=== PATIENT | male | born 1965 | race Caucasian/White ===

== ENCOUNTER 2020-07-01 20:33 | Inpatient (IN) | payer OTHER ==
[~2020-07-01] VITALS: Ht 182.9 cm; Wt 173.5 kg
[2020-07-01] MEDS ORDERED: ACETAMINOPHEN 500 MG TAB PO ONE (20:45)
[2020-07-01] MEDS ORDERED: FUROSEMIDE 20 MG/2 ML VIAL IV ONE (21:30)
[2020-07-01 21:38] LABS: Basophils # (auto) 0.1 10 ^3/uL (0-0.2); Eosinophils # (auto) 0 10 ^3/uL (0-0.8); Lymphocytes # (auto) 0.3 10 ^3/uL (0.4-5.4)
[2020-07-01 21:40] LABS: Basophils % (auto) 0.7 % (0.0-2.0); Lymphocytes % (auto) 1.4 % (10.0-50.0); Mean Corpuscular Hemoglobin 24.9 pg (28.0-32.0); Mean Corpuscular Hgb Conc. 31.9 g/dL (32.0-36.0); Mean Corpuscular Volume 78.1 fL (80.0-100.0); Monocytes # (auto) 1.1 10 ^3/uL (0-1.3); Monocytes % (auto) 5.5 % (0.0-12.0); Neutrophils # (auto) 19.4 10 ^3/uL (1.6-8.6); Neutrophils % (auto) 92.4 % (37.0-80.0); Nucleated Red Blood Cells % 1.9 %; Red Blood Cells 8.02 10^6/uL (4.5-5.90); White Blood Cell 20.9 10^3/uL (4.4-10.8)
[2020-07-01 21:49] LABS: Hematocrit 62.6 % (41.0-53.0)
[2020-07-01 22:12] LABS: Sodium 136 mmol/L (136-145)
[2020-07-01 22:13] LABS: Alanine Aminotransferase 33 U/L (16-61); Albumin 3.2 g/dL (3.4-5.0); Alkaline Phosphatase 236 U/L (45-117); Anion Gap 9 (5-15); Aspartate Aminotransferase 36 U/L (15-37); BUN/Creatinine Ratio 26.4; Bilirubin, Total 1.2 mg/dL (0.2-1.0); Blood Urea Nitrogen 48 mg/dL (7-18); Calcium 9.3 mg/dL (8.5-10.1); Carbon Dioxide 28 mmol/L (21-32); Chloride 99 mmol/L (98-107); GFR African American 50 mL/min; GFR Non-African American 41 mL/min; Glucose 104 mg/dL (74-106); Magnesium 1.5 mg/dL (1.6-2.6); Potassium 4.2 mmol/L (3.5-5.1); Total Protein 7.2 g/dL (6.4-8.2)
[2020-07-01] MEDS ORDERED: PIPERACILLIN-TAZOB 3.375GM 100 ML IV ONE (22:15)
[2020-07-01] MEDS ORDERED: VANCOMYCIN 1GM/250ML 250 ML IV ONE (22:30)
[2020-07-01] MEDS ORDERED: ASPirin-EC 81 mg tab PO ONE (22:30)
[2020-07-01 22:45] LABS: INR 1.59 (0.9-1.15); Partial Thromboplastin Time 27.9 sec (23.0-31.2)
[2020-07-01 23:01] LABS: Urine Bacteria FEW /hpf (None Seen); Urine Blood TRACE /uL (Negative); Urine Specific Gravity 1.019 (1.001-1.035); Urine WBC 1 /hpf (0 - 3)
[2020-07-01] MEDS ORDERED: SODIUM CHLORIDE 0.9% 1,000 ML IV ONE (23:45)
[2020-07-02] VITALS (20 sets, daily range): BP systolic 105–145; BP diastolic 48–69
[2020-07-02] MEDS ORDERED: NITROGLYCERIN 0.4 MG SL TAB SL PRN (01:15)
[2020-07-02] MEDS ORDERED: ACETAMINOPHEN 325 MG TAB PO PRN (01:15)
[2020-07-02] MEDS ORDERED: MORPHINE SULFATE INJECTION 2 MG/ML SYRG IV PRN (01:15)
[2020-07-02] MEDS ORDERED: IBUPROFEN 600 MG TAB PO ONE (01:15)
[2020-07-02] MEDS ORDERED: VANCOMYCIN PER PHARMACY 0 MG IV SCH (01:15)
[2020-07-02] MEDS ORDERED: DEXTROSE (50%) 50ML SYRG IV PRN (01:15)
[2020-07-02] MEDS ORDERED: HYDROcodone-ACET 5/325MG TAB PO PRN (01:15)
[2020-07-02] MEDS ORDERED: ONDANSETRON HCL 4 MG/2 ML VIAL IV PRN (01:15)
[2020-07-02] MEDS ORDERED: methylPREDNISolone SOD SUCC 125 MG/2 ML VL IV ONE (03:15)
[2020-07-02] MEDS: FUROSEMIDE 40 MG/4 ML VIAL IV SCH ×2 (04:49→18:50)
[2020-07-02] MEDS: ACCU-CHEK COMFORT CURVE STRIP VI SCH ×3 (04:50→18:00)
[2020-07-02] MEDS: InsuLIN REG 1unit/0.01ml Soln (100units/ml) SC SCH ×3 (04:50→18:00)
[2020-07-02] MEDS: PIPERACILLIN-TAZOB 3.375GM 100 ML IV SCH ×3 (04:51→18:51)
[2020-07-02] MEDS: IPRATROPIUM BROM 0.5 MG/2.5ML INH SOL NEB SCH ×3 (06:10→18:45)
[2020-07-02] MEDS: ALBUTEROL SULF 2.5 MG/0.5ML(0.5%) NEB SOLN NEB SCH ×3 (06:10→18:45)
[2020-07-02] MEDS: ATENOLOL 50 MG TAB PO SCH (10:00)
[2020-07-02] MEDS ORDERED: VANCOMYCIN 750mg/250ml 250 ML IV SCH (10:00)
[2020-07-02] MEDS ORDERED: LOSARTAN POTASSIUM 50 MG TAB PO SCH (10:00)
[2020-07-02] MEDS: ASPirin 81 mg TAB PO SCH (10:22)
[2020-07-02] MEDS: PANTOPRAZOLE 40 MG TAB PO SCH (10:23)
[2020-07-02] MEDS: ENOXAPARIN SOD 40 MG/0.4 ML SYRINGE SC SCH (10:24)
[2020-07-02] MEDS ORDERED: MAGNESIUM OXIDE 400 MG TAB PO ONE (11:15)
[2020-07-02] MEDS ORDERED: methylPREDNISolone SOD SUCC 40 MG/ML VL IV SCH (12:00)
[2020-07-02 12:51] LABS: Eosinophils # (auto) 0 10 ^3/uL (0-0.8); Hemoglobin 18.4 g/dL (13.5-17.5); Mean Corpuscular Volume 78.9 fL (80.0-100.0)
[2020-07-02 12:52] LABS: Basophils # (auto) 0 10 ^3/uL (0-0.2); Basophils % (auto) 0.1 % (0.0-2.0); Lymphocytes # (auto) 0.2 10 ^3/uL (0.4-5.4); Lymphocytes % (auto) 1.5 % (10.0-50.0); Mean Corpuscular Hemoglobin 24.9 pg (28.0-32.0); Mean Corpuscular Hgb Conc. 31.6 g/dL (32.0-36.0); Monocytes # (auto) 0.6 10 ^3/uL (0-1.3); Monocytes % (auto) 3.8 % (0.0-12.0); Neutrophils # (auto) 15.6 10 ^3/uL (1.6-8.6); Neutrophils % (auto) 94.6 % (37.0-80.0); Nucleated Red Blood Cells % 0.3 %; Red Blood Cells 7.36 10^6/uL (4.5-5.90); Red Cell Distribution Width 16.6 % (11.8-14.3); White Blood Cell 16.5 10^3/uL (4.4-10.8)
[2020-07-02 12:59] LABS: Hematocrit 58.1 % (41.0-53.0)
[2020-07-02] MEDS ORDERED: OPTISON 3ml Vial for INJ IV ONE (13:01)
[2020-07-02 13:03] LABS: Albumin 2.2 g/dL (3.4-5.0); Calcium 6.9 mg/dL (8.5-10.1); Potassium 5.3 mmol/L (3.5-5.1)
[2020-07-02 13:06] LABS: Bilirubin, Total 1.4 mg/dL (0.2-1.0); Total Protein 6.2 g/dL (6.4-8.2)
[2020-07-02 13:17] LABS: Protein, Urine 146.5 mg/dL (0.0-11.9)
[2020-07-02] MEDS: SODIUM BICARBONATE 50ML VIAL 150 ML in D5W 5% 1,000 ML IV SCH (20:00)
[2020-07-02] MEDS ORDERED: ATORVASTATIN 20 MG TAB PO SCH (22:00)
[2020-07-03] VITALS (16 sets, daily range): BP systolic 112–147; BP diastolic 60–79
[2020-07-03] MEDS: PIPERACILLIN-TAZOB 3.375GM 100 ML IV SCH ×4 (00:19→17:16)
[2020-07-03] MEDS: ACCU-CHEK COMFORT CURVE STRIP VI SCH ×4 (00:19→17:18)
[2020-07-03] MEDS: InsuLIN REG 1unit/0.01ml Soln (100units/ml) SC SCH ×4 (00:25→17:21)
[2020-07-03] MEDS: IPRATROPIUM BROM 0.5 MG/2.5ML INH SOL NEB SCH ×4 (00:26→18:23)
[2020-07-03] MEDS: ALBUTEROL SULF 2.5 MG/0.5ML(0.5%) NEB SOLN NEB SCH ×4 (00:26→18:23)
[2020-07-03 05:58] LABS: Basophils # (auto) 0 10 ^3/uL (0-0.2); Eosinophils # (auto) 0 10 ^3/uL (0-0.8); Hemoglobin 18.1 g/dL (13.5-17.5); Lymphocytes # (auto) 0.3 10 ^3/uL (0.4-5.4); Monocytes # (auto) 0.7 10 ^3/uL (0-1.3); Neutrophils % (auto) 87.1 % (37.0-80.0); Red Cell Distribution Width 16.6 % (11.8-14.3)
[2020-07-03] MEDS: FUROSEMIDE 40 MG/4 ML VIAL IV SCH ×2 (06:04→17:16)
[2020-07-03 06:07] LABS: Basophils % (auto) 0.1 % (0.0-2.0); Hematocrit 55.4 % (41.0-53.0); Lymphocytes % (auto) 3.5 % (10.0-50.0); Mean Corpuscular Hemoglobin 25.7 pg (28.0-32.0); Mean Corpuscular Hgb Conc. 32.7 g/dL (32.0-36.0); Mean Corpuscular Volume 78.6 fL (80.0-100.0); Monocytes % (auto) 9.3 % (0.0-12.0); Neutrophils # (auto) 6.8 10 ^3/uL (1.6-8.6); Red Blood Cells 7.05 10^6/uL (4.5-5.90); White Blood Cell 7.8 10^3/uL (4.4-10.8)
[2020-07-03 06:20] LABS: Albumin 2.3 g/dL (3.4-5.0); BUN/Creatinine Ratio 35.5; Calcium 7.9 mg/dL (8.5-10.1); Potassium 4.5 mmol/L (3.5-5.1)
[2020-07-03 06:22] LABS: Bilirubin, Total 0.8 mg/dL (0.2-1.0); Total Protein 5.8 g/dL (6.4-8.2)
[2020-07-03] MEDS: SODIUM BICARBONATE 50ML VIAL 150 ML in D5W 5% 1,000 ML IV SCH ×2 (07:58→18:30)
[2020-07-03] MEDS: ENOXAPARIN SOD 40 MG/0.4 ML SYRINGE SC SCH (09:48)
[2020-07-03] MEDS: ATENOLOL 50 MG TAB PO SCH (09:49)
[2020-07-03] MEDS: PANTOPRAZOLE 40 MG TAB PO SCH (09:49)
[2020-07-03] MEDS: ASPirin 81 mg TAB PO SCH (09:49)
[2020-07-03] MEDS ORDERED: MAGNESIUM OXIDE 400 MG TAB PO SCH (10:00)
[2020-07-03] MEDS ORDERED: INSULIN LANTUS (GLARGINE) 1 /0.01ml (100units/ml) SC SCH (13:15)
[2020-07-03] MEDS ORDERED: DEXTROSE (50%) 50ML SYRG IV PRN (20:00)
[2020-07-04] MEDS ORDERED: InsuLIN REG 1unit/0.01ml Soln (100units/ml) SC SCH
[2020-07-04] MEDS ORDERED: ACCU-CHEK COMFORT CURVE STRIP VI SCH
[2020-07-04] MEDS ORDERED: ASPirin 81 mg TAB PO SCH (10:00)
== END 2020-07-03 21:11 | disposition short-term general hospital (02) | DRG 871 ==
LOC: EDBD 20:33 → ER 20:33 → TELE 07-02 01:16 → DOU IN ICU 07-02 03:45
PROVIDERS: ADMIT Nurse Practitioner; ATTEND Internal Medicine Nephrology
PROC: 5A09357 Assistance with Respiratory Ventilation, Less than 24 Consecutive Hours, Continuous Positive Airway Pressure (ICD-10-PCS; principal; 2020-07-02)
PROC: 5A09357 Assistance with Respiratory Ventilation, Less than 24 Consecutive Hours, Continuous Positive Airway Pressure (ICD-10-PCS; 2020-07-03)
PROC: 05HD33Z Insertion of Infusion Device into Right Cephalic Vein, Percutaneous Approach (ICD-10-PCS; 2020-07-03)
PROC: B54MZZA Ultrasonography of Right Upper Extremity Veins, Guidance (ICD-10-PCS; 2020-07-03)
DX: A41.9 Sepsis, unspecified organism (principal); I21.A1 Myocardial infarction type 2; J18.9 Pneumonia, unspecified organism; J96.21 Acute and chronic respiratory failure with hypoxia; J96.22 Acute and chronic respiratory failure with hypercapnia; E66.2 Morbid (severe) obesity with alveolar hypoventilation; Z68.43 Body mass index [BMI] 50.0-59.9, adult; E87.4 Mixed disorder of acid-base balance; I13.0 Hypertensive heart and chronic kidney disease with heart failure and stage 1 through stage 4 chronic kidney disease, or unspecified chronic kidney disease; J44.0 Chronic obstructive pulmonary disease with (acute) lower respiratory infection; J44.1 Chronic obstructive pulmonary disease with (acute) exacerbation; L03.115 Cellulitis of right lower limb; L03.116 Cellulitis of left lower limb; N17.9 Acute kidney failure, unspecified; D75.1 Secondary polycythemia; E11.22 Type 2 diabetes mellitus with diabetic chronic kidney disease; E11.65 Type 2 diabetes mellitus with hyperglycemia; Z20.822 Contact with and (suspected) exposure to COVID-19; E87.5 Hyperkalemia; E88.09 Other disorders of plasma-protein metabolism, not elsewhere classified; I50.82 Biventricular heart failure; I87.8 Other specified disorders of veins; K42.9 Umbilical hernia without obstruction or gangrene; R65.20 Severe sepsis without septic shock; R74.01 Elevation of levels of liver transaminase levels; N18.32 Chronic kidney disease, stage 3b
CPT/HCPCS: 36415; 36600; 71045; 80053; 81001; 82570; 82805; 82962; 83036; 83605; 83735; 83880; 84156; 84484; 85025; 85379; 85610; 85730; 87040; 87077; 87081; 87086; 87186; 87205; 87426; 93005; 93306; 93970; 94640; 94660; 96361; 96365; 96367; 96375; 99291; G0378; J1815; J2543; Q9956

== ENCOUNTER 2022-01-30 21:58 | Emergency (ER) | payer OTHER ==
[~2022-01-30] VITALS: Ht 182.9 cm; Wt 154.5 kg
[2022-01-30 23:08] LABS: Urine Bacteria NONE SEEN /hpf (None Seen); Urine Blood Negative /uL (Negative); Urine Specific Gravity 1.017 (1.001-1.035); Urine WBC 9 /hpf (0 - 3)
[2022-01-31] MEDS ORDERED: MORPHINE SULFATE 4 MG/ML SYR/VIAL IV ONE (02:00)
[2022-01-31 02:37] LABS: Basophils # (auto) 0.1 10 ^3/uL (0-0.2); Basophils % (auto) 0.5 % (0.0-2.0); Eosinophils # (auto) 0 10 ^3/uL (0-0.8); Eosinophils % (auto) 0.1 % (0.0-7.0); Hematocrit 52.7 % (41.0-53.0); Hemoglobin 16.9 g/dL (13.5-17.5); Lymphocytes # (auto) 0.5 10 ^3/uL (0.4-5.4); Mean Corpuscular Hemoglobin 26.3 pg (28.0-32.0); Mean Corpuscular Hgb Conc. 32.1 g/dL (32.0-36.0); Mean Corpuscular Volume 81.9 fL (80.0-100.0); Monocytes # (auto) 0.9 10 ^3/uL (0-1.3); Monocytes % (auto) 7.2 % (0.0-12.0); Neutrophils # (auto) 10.5 10 ^3/uL (1.6-8.6); Neutrophils % (auto) 88.2 % (37.0-80.0); Nucleated Red Blood Cells % 0.5 %; Red Blood Cells 6.43 10^6/uL (4.5-5.90); White Blood Cell 11.9 10^3/uL (4.4-10.8)
[2022-01-31 02:55] LABS: Albumin 2.9 g/dL (3.4-5.0); Calcium 9.6 mg/dL (8.5-10.1)
[2022-01-31 02:58] LABS: BUN/Creatinine Ratio 39.7; Bilirubin, Total 1.2 mg/dL (0.2-1.0); Total Protein 6.6 g/dL (6.4-8.2)
[2022-01-31 03:00] VITALS: BP 158/75
[2022-02-01] MEDS ORDERED: ATEN50TA PO (11:57)
[2022-02-01] MEDS ORDERED: ATOR40TA52 PO (11:57)
[2022-02-01] MEDS ORDERED: AMLO-496 PO (11:57)
[2022-02-01] MEDS ORDERED: LOSA-39 PO (11:57)
== END 2022-01-31 04:55 | disposition home or self-care (01) ==
LOC: ER 22:01
DX: R10.9 Unspecified abdominal pain (principal); E86.0 Dehydration; I11.0 Hypertensive heart disease with heart failure; I50.9 Heart failure, unspecified; E11.9 Type 2 diabetes mellitus without complications; J44.9 Chronic obstructive pulmonary disease, unspecified
CPT/HCPCS: 36415; 71045; 74176; 80053; 81001; 82550; 82962; 83880; 84484; 85025; 93005; 96374; 99285; J2270

== ENCOUNTER 2022-02-01 05:02 | Inpatient (IN) | payer OTHER ==
[2022-02-01] VITALS (8 sets, daily range): BP systolic 131–162; BP diastolic 69–76
[~2022-02-01] VITALS: Ht 177.8 cm; Wt 164.5 kg
[2022-02-01] MEDS ORDERED: ALBUTEROL SULF 2.5 MG/0.5ML(0.5%) NEB SOLN HHN ONE (05:15)
[2022-02-01] MEDS ORDERED: IPRATROPIUM BROM 0.5 MG/2.5ML INH SOL HHN ONE (05:15)
[2022-02-01] MEDS ORDERED: FUROSEMIDE 100 MG/10ML VIAL IV ONE (05:15)
[2022-02-01] MEDS ORDERED: AZITHROMYCIN 500MG/ 250ML 250 ML IV ONE (06:15)
[2022-02-01] MEDS ORDERED: ACETAMINOPHEN 325 MG TAB PO ONE (06:15)
[2022-02-01] MEDS ORDERED: cefTRIAXone 1GM/50ML D5W 50 ML IV ONE (06:15)
[2022-02-01 07:39] LABS: Basophils # (auto) 0 10 ^3/uL (0-0.2); Eosinophils # (auto) 0 10 ^3/uL (0-0.8); Hemoglobin 16.4 g/dL (13.5-17.5); Neutrophils # (auto) 13.2 10 ^3/uL (1.6-8.6); White Blood Cell 14.5 10^3/uL (4.4-10.8)
[2022-02-01] MEDS ORDERED: IOHEXOL 350 MG/ML 100ML IJ ONE (07:41)
[2022-02-01 07:42] LABS: Basophils % (auto) 0.2 % (0.0-2.0); Hematocrit 50.8 % (41.0-53.0); Lymphocytes # (auto) 0.5 10 ^3/uL (0.4-5.4); Lymphocytes % (auto) 3.3 % (10.0-50.0); Mean Corpuscular Hemoglobin 26.2 pg (28.0-32.0); Mean Corpuscular Hgb Conc. 32.3 g/dL (32.0-36.0); Mean Corpuscular Volume 81.1 fL (80.0-100.0); Monocytes # (auto) 0.8 10 ^3/uL (0-1.3); Monocytes % (auto) 5.4 % (0.0-12.0); Neutrophils % (auto) 91.1 % (37.0-80.0); Red Blood Cells 6.26 10^6/uL (4.5-5.90); Red Cell Distribution Width 16.2 % (11.8-14.3)
[2022-02-01] MEDS ORDERED: cefEPIME 1gm INJ VIAL IM ONE (07:45)
[2022-02-01] MEDS ORDERED: VANCOMYCIN 1GM/250ML 250 ML IV ONE (07:45)
[2022-02-01 08:34] LABS: Albumin 2.9 g/dL (3.4-5.0); Calcium 9.5 mg/dL (8.5-10.1); Magnesium 2.4 mg/dL (1.6-2.6); Potassium 4.3 mmol/L (3.5-5.1)
[2022-02-01 08:38] LABS: Bilirubin, Total 1.9 mg/dL (0.2-1.0); Total Protein 6.5 g/dL (6.4-8.2)
[2022-02-01] MEDS ORDERED: CEFEPIME 1GM/ 50ML 50 ML IV ONE (10:00)
[2022-02-01] MEDS ORDERED: MORPHINE SULFATE INJ 2 MG/ml SYRG IV PRN ×2 (11:45)
[2022-02-01] MEDS ORDERED: NITROGLYCERIN 0.4 MG SL TAB SL PRN (11:45)
[2022-02-01] MEDS ORDERED: ENOXAPARIN SOD 100 MG/1 ML SYRINGE SC ONE (11:45)
[2022-02-01] MEDS ORDERED: SODIUM CHLORIDE 0.9% 1,000 ML IV SCH (11:45)
[2022-02-01] MEDS ORDERED: HYDROcodone-ACET 5/325MG TAB PO PRN (11:45)
[2022-02-01] MEDS ORDERED: SODIUM CHLORIDE 0.9% 500 ML IV ONE (11:45)
[2022-02-01] MEDS ORDERED: DEXTROSE (50%) 50ML SYRG IV PRN (11:45)
[2022-02-01] MEDS ORDERED: IPRATROPIUM BROM 0.5 MG/2.5ML INH SOL NEB PRN (11:45)
[2022-02-01] MEDS ORDERED: ATOR40TA52 PO (11:57)
[2022-02-01] MEDS ORDERED: AMLO-496 PO (11:57)
[2022-02-01] MEDS ORDERED: LOSA-39 PO (11:57)
[2022-02-01] MEDS ORDERED: ATEN50TA PO (11:57)
[2022-02-01] MEDS: InsuLIN REG 1unit/0.01ml Soln (100units/ml) SC SCH ×2 (12:00→18:28)
[2022-02-01] MEDS: ACCU-CHEK COMFORT CURVE STRIP VI SCH ×2 (13:00→18:19)
[2022-02-01 13:11] LABS: Urine WBC None Seen /hpf (0 - 3)
[2022-02-01 13:21] LABS: Urine Bacteria NONE SEEN /hpf (None Seen); Urine Blood Negative /uL (Negative); Urine Hyaline Cast FEW /lpf (0 - 2); Urine Specific Gravity 1.013 (1.001-1.035)
[2022-02-01 13:24] LABS: INR 1.42 (0.9-1.15)
[2022-02-01 13:31] LABS: Cholesterol 75 mg/dL (< 200); HDL Cholesterol 23 mg/dL (40-59); LDL Cholesterol 43 mg/dL (< 100); Triglycerides 140 mg/dL (< 150)
[2022-02-01] MEDS: ALBUTEROL SULF 2.5 MG/0.5ML(0.5%) NEB SOLN NEB SCH ×3 (14:01→23:54)
[2022-02-01] MEDS: IPRATROPIUM BROM 0.5 MG/2.5ML INH SOL NEB SCH ×3 (14:01→23:54)
[2022-02-01] MEDS: FUROSEMIDE 40 MG/4 ML VIAL IV SCH ×2 (15:16→18:00)
[2022-02-01] MEDS: ENOXAPARIN SOD 150 MG/1 ML SYRINGE SC SCH (22:01)
[2022-02-02] VITALS (47 sets, daily range): BP systolic 84–143; BP diastolic 48–85
[2022-02-02] MEDS: InsuLIN REG 1unit/0.01ml Soln (100units/ml) SC SCH ×5 (00:10→23:39)
[2022-02-02] MEDS: ACCU-CHEK COMFORT CURVE STRIP VI SCH ×4 (00:11→18:19)
[2022-02-02] MEDS: ACETAMINOPHEN 325 MG TAB PO PRN ×2 (05:10→15:48)
[2022-02-02] MEDS: FUROSEMIDE 40 MG/4 ML VIAL IV SCH (05:54)
[2022-02-02] MEDS: IPRATROPIUM BROM 0.5 MG/2.5ML INH SOL NEB SCH ×4 (06:24→23:51)
[2022-02-02] MEDS: ALBUTEROL SULF 2.5 MG/0.5ML(0.5%) NEB SOLN NEB SCH ×4 (06:24→23:51)
[2022-02-02 06:43] LABS: Eosinophils # (auto) 0 10 ^3/uL (0-0.8); Lymphocytes # (auto) 0.4 10 ^3/uL (0.4-5.4); Lymphocytes % (auto) 3.1 % (10.0-50.0)
[2022-02-02 06:47] LABS: Basophils # (auto) 0.1 10 ^3/uL (0-0.2); Basophils % (auto) 0.5 % (0.0-2.0); Hematocrit 46.2 % (41.0-53.0); Hemoglobin 14.8 g/dL (13.5-17.5); Mean Corpuscular Hgb Conc. 32.1 g/dL (32.0-36.0); Mean Corpuscular Volume 80.9 fL (80.0-100.0); Monocytes % (auto) 6.9 % (0.0-12.0); Neutrophils # (auto) 12.8 10 ^3/uL (1.6-8.6); Neutrophils % (auto) 89.5 % (37.0-80.0); Red Blood Cells 5.72 10^6/uL (4.5-5.90); Red Cell Distribution Width 15.9 % (11.8-14.3); White Blood Cell 14.4 10^3/uL (4.4-10.8)
[2022-02-02 07:11] LABS: Potassium 4.5 mmol/L (3.5-5.1)
[2022-02-02 07:19] LABS: Albumin 2.3 g/dL (3.4-5.0); BUN/Creatinine Ratio 52.3; Bilirubin, Total 1.5 mg/dL (0.2-1.0); Calcium 8.7 mg/dL (8.5-10.1)
[2022-02-02] MEDS ORDERED: ROCURONIUM 10MG/ML 10ML VIAL IV ONE ×2 (08:52→10:00)
[2022-02-02] MEDS ORDERED: ETOMIDATE (2MG/ML) 20ML VIAL IV ONE ×2 (08:52→10:00)
[2022-02-02] MEDS ORDERED: cefTRIAXone 1GM/50ML D5W 50 ML IV SCH (09:00)
[2022-02-02] MEDS: fentaNYL Drip 2500mCg/250mlNS 250 ML IV SCH ×2 (09:00→13:26)
[2022-02-02] MEDS: PROPOFOL 100 ML IV SCH (09:00)
[2022-02-02] MEDS: MIDAZOLAM DRIP 50 mg/50mL 50 ML IV SCH ×3 (09:00→21:41)
[2022-02-02] MEDS ORDERED: AZITHROMYCIN 500MG/ 250ML 250 ML IV SCH (10:00)
[2022-02-02] MEDS: ENOXAPARIN SOD 150 MG/1 ML SYRINGE SC SCH (10:00)
[2022-02-02] MEDS ORDERED: PIPERACILLIN-TAZOB 3.375GM 100 ML IV ONE (14:30)
[2022-02-02] MEDS ORDERED: PANTOPRAZOLE 40 MG/10 ML VIAL INJ IV ONE (14:30)
[2022-02-02] MEDS: NOREPINEPHRINE 8 MG/250ML KIT 250 ML IV SCH ×2 (14:30→19:57)
[2022-02-02] MEDS ORDERED: DEXTROSE (50%) 50ML SYRG IV PRN (14:30)
[2022-02-02] MEDS ORDERED: SODIUM CHLORIDE 0.9% 1,000 ML IV SCH (14:30)
[2022-02-02] MEDS ORDERED: MEROPENEM 1GM IVPB 100 ML IV ONE (14:45)
[2022-02-02] MEDS: LINEZOLID 600MG/300ML 300 ML IV SCH (21:41)
[2022-02-02] MEDS: MEROPENEM 1GM IVPB 100 ML IV SCH (21:41)
[2022-02-02] MEDS ORDERED: PIPERACILLIN-TAZOB 3.375GM 100 ML IV SCH (22:00)
[2022-02-03] VITALS (71 sets, daily range): BP systolic 91–133; BP diastolic 47–69
[2022-02-03] MEDS: MIDAZOLAM DRIP 50 mg/50mL 50 ML IV SCH ×3 (02:07→12:10)
[2022-02-03] MEDS: fentaNYL Drip 2500mCg/250mlNS 250 ML IV SCH (02:09)
[2022-02-03 04:49] LABS: Basophils # (auto) 0.1 10 ^3/uL (0-0.2); Basophils % (auto) 0.7 % (0.0-2.0); Eosinophils # (auto) 0.1 10 ^3/uL (0-0.8); Eosinophils % (auto) 0.6 % (0.0-7.0); Hemoglobin 13.4 g/dL (13.5-17.5); Lymphocytes # (auto) 1.1 10 ^3/uL (0.4-5.4); Mean Corpuscular Hemoglobin 25.7 pg (28.0-32.0); Mean Corpuscular Hgb Conc. 31.1 g/dL (32.0-36.0); Mean Corpuscular Volume 82.7 fL (80.0-100.0); Monocytes # (auto) 1.2 10 ^3/uL (0-1.3); Monocytes % (auto) 7.6 % (0.0-12.0); Neutrophils # (auto) 13.6 10 ^3/uL (1.6-8.6); Neutrophils % (auto) 84.1 % (37.0-80.0); Nucleated Red Blood Cells % 0.1 %; Red Cell Distribution Width 16.5 % (11.8-14.3); White Blood Cell 16.2 10^3/uL (4.4-10.8)
[2022-02-03 05:09] LABS: BUN/Creatinine Ratio 45.6; Bilirubin, Total 1.3 mg/dL (0.2-1.0); Calcium 8.2 mg/dL (8.5-10.1); Potassium 4.7 mmol/L (3.5-5.1)
[2022-02-03] MEDS: ACCU-CHEK COMFORT CURVE STRIP VI SCH ×5 (05:36→23:46)
[2022-02-03] MEDS: InsuLIN REG 1unit/0.01ml Soln (100units/ml) SC SCH ×4 (05:36→23:46)
[2022-02-03] MEDS: MEROPENEM 1GM IVPB 100 ML IV SCH (05:42)
[2022-02-03] MEDS: PROPOFOL 100 ML IV SCH (07:14)
[2022-02-03] MEDS: LINEZOLID 600MG/300ML 300 ML IV SCH (09:33)
[2022-02-03] MEDS: PANTOPRAZOLE 40 MG/10 ML VIAL INJ IV SCH (09:34)
[2022-02-03] MEDS: ALBUTEROL SULF 2.5 MG/0.5ML(0.5%) NEB SOLN NEB SCH ×3 (09:41→18:17)
[2022-02-03] MEDS: IPRATROPIUM BROM 0.5 MG/2.5ML INH SOL NEB SCH ×3 (09:41→18:17)
[2022-02-03] MEDS ORDERED: ENOXAPARIN SOD 40 MG/0.4 ML SYRINGE SC SCH (10:00)
[2022-02-03] MEDS ORDERED: Nepro With Carb Steady 1 Liter Bottle GT SCH (14:15)
[2022-02-03] MEDS ORDERED: SODIUM CHLORIDE 0.9% 1,000 ML IV SCH (14:15)
[2022-02-03] MEDS: ALBUMIN 25% 100 ML IV SCH ×2 (15:00→22:29)
[2022-02-03] MEDS ORDERED: CEFTRIAXONE SODIUM 2 GM in D5W 5% 50 ML IV SCH (15:19)
[2022-02-03] MEDS: CEFEPIME 1GM/ 50ML 50 ML IV SCH (16:00)
[2022-02-03] MEDS: FREE WATER GT SCH ×2 (18:00→21:36)
[2022-02-03] MEDS: ENOXAPARIN SOD 40 MG/0.4 ML SYRINGE SC SCH (21:36)
[2022-02-03] MEDS: INSULIN LANTUS (GLARGINE) 1 /0.01ml (100units/ml) SC SCH (21:38)
[2022-02-03] MEDS ORDERED: CLINDAMYCIN 600MG IV 50 ML IV SCH (22:00)
[2022-02-04] VITALS (107 sets, daily range): BP systolic 80–134; BP diastolic 45–65
[2022-02-04] MEDS: MIDAZOLAM DRIP 50 mg/50mL 50 ML IV SCH ×3 (00:05→09:43)
[2022-02-04] MEDS: IPRATROPIUM BROM 0.5 MG/2.5ML INH SOL NEB SCH ×4 (00:20→18:13)
[2022-02-04] MEDS: ALBUTEROL SULF 2.5 MG/0.5ML(0.5%) NEB SOLN NEB SCH ×3 (00:20→12:01)
[2022-02-04] MEDS: FREE WATER GT SCH ×4 (03:06→17:52)
[2022-02-04] MEDS: CEFEPIME 1GM/ 50ML 50 ML IV SCH ×2 (03:52→16:50)
[2022-02-04 04:38] LABS: Albumin 2.5 g/dL (3.4-5.0); Basophils # (auto) 0.1 10 ^3/uL (0-0.2); Basophils % (auto) 0.5 % (0.0-2.0); Calcium 8.2 mg/dL (8.5-10.1); Eosinophils # (auto) 0.1 10 ^3/uL (0-0.8); Eosinophils % (auto) 0.9 % (0.0-7.0); Lymphocytes # (auto) 0.5 10 ^3/uL (0.4-5.4); Mean Corpuscular Hemoglobin 26.1 pg (28.0-32.0); Mean Corpuscular Hgb Conc. 31.7 g/dL (32.0-36.0); Mean Corpuscular Volume 82.5 fL (80.0-100.0); Monocytes % (auto) 7.1 % (0.0-12.0); Neutrophils # (auto) 11.7 10 ^3/uL (1.6-8.6); Neutrophils % (auto) 87.5 % (37.0-80.0); Nucleated Red Blood Cells % 0.2 %; Potassium 5.1 mmol/L (3.5-5.1); Red Blood Cells 4.97 10^6/uL (4.5-5.90); Red Cell Distribution Width 16.7 % (11.8-14.3); White Blood Cell 13.4 10^3/uL (4.4-10.8)
[2022-02-04 04:44] LABS: BUN/Creatinine Ratio 39.7; Bilirubin, Total 1.6 mg/dL (0.2-1.0); Total Protein 5.8 g/dL (6.4-8.2)
[2022-02-04] MEDS: PROPOFOL 100 ML IV SCH (05:28)
[2022-02-04] MEDS: InsuLIN REG 1unit/0.01ml Soln (100units/ml) SC SCH ×3 (06:12→17:53)
[2022-02-04] MEDS: ACCU-CHEK COMFORT CURVE STRIP VI SCH ×3 (06:12→17:52)
[2022-02-04] MEDS: INSULIN LANTUS (GLARGINE) 1 /0.01ml (100units/ml) SC SCH ×2 (06:32→22:24)
[2022-02-04] MEDS: ALBUMIN 25% 100 ML IV SCH (06:41)
[2022-02-04] MEDS: ENOXAPARIN SOD 40 MG/0.4 ML SYRINGE SC SCH (09:41)
[2022-02-04] MEDS: PANTOPRAZOLE 40 MG/10 ML VIAL INJ IV SCH (09:41)
[2022-02-04] MEDS: fentaNYL Drip 2500mCg/250mlNS 250 ML IV SCH (09:43)
[2022-02-04] MEDS ORDERED: ENOXAPARIN SOD 150 MG/1 ML SYRINGE SC ONE (14:15)
[2022-02-04] MEDS: NOREPINEPHRINE 8 MG/250ML KIT 250 ML IV SCH (14:30)
[2022-02-04] MEDS: LINEZOLID 600MG/300ML 300 ML IV SCH ×2 (14:35→22:23)
[2022-02-04] MEDS: FUROSEMIDE INJECTION 100 MG in SODIUM CHL 0.9% 100 ML IV SCH ×2 (14:35→18:56)
[2022-02-05] VITALS (102 sets, daily range): BP systolic 82–150; BP diastolic 40–69
[2022-02-05] MEDS: IPRATROPIUM BROM 0.5 MG/2.5ML INH SOL NEB SCH ×4 (00:07→18:19)
[2022-02-05] MEDS: FREE WATER GT SCH ×4 (00:17→16:42)
[2022-02-05] MEDS: ACCU-CHEK COMFORT CURVE STRIP VI SCH ×4 (00:17→16:42)
[2022-02-05] MEDS: NOREPINEPHRINE 8 MG/250ML KIT 250 ML IV SCH (00:18)
[2022-02-05] MEDS: FUROSEMIDE INJECTION 100 MG in SODIUM CHL 0.9% 100 ML IV SCH ×3 (00:18→12:00)
[2022-02-05] MEDS: MIDAZOLAM DRIP 50 mg/50mL 50 ML IV SCH ×4 (00:19→21:30)
[2022-02-05] MEDS: InsuLIN REG 1unit/0.01ml Soln (100units/ml) SC SCH ×4 (00:26→16:41)
[2022-02-05] MEDS: fentaNYL Drip 2500mCg/250mlNS 250 ML IV SCH ×2 (02:13→16:41)
[2022-02-05] MEDS: PROPOFOL 100 ML IV SCH (03:42)
[2022-02-05] MEDS: CEFEPIME 1GM/ 50ML 50 ML IV SCH ×2 (04:11→16:05)
[2022-02-05 04:17] LABS: Eosinophils # (auto) 0.2 10 ^3/uL (0-0.8); Lymphocytes # (auto) 0.6 10 ^3/uL (0.4-5.4); Monocytes # (auto) 0.8 10 ^3/uL (0-1.3)
[2022-02-05 04:22] LABS: Basophils # (auto) 0 10 ^3/uL (0-0.2); Basophils % (auto) 0.4 % (0.0-2.0); Eosinophils % (auto) 1.5 % (0.0-7.0); Hematocrit 40.4 % (41.0-53.0); Hemoglobin 12.5 g/dL (13.5-17.5); Lymphocytes % (auto) 5.7 % (10.0-50.0); Mean Corpuscular Hemoglobin 25.5 pg (28.0-32.0); Mean Corpuscular Volume 82.3 fL (80.0-100.0); Monocytes % (auto) 7.5 % (0.0-12.0); Neutrophils % (auto) 84.9 % (37.0-80.0); Nucleated Red Blood Cells % 0.1 %; Red Blood Cells 4.91 10^6/uL (4.5-5.90); Red Cell Distribution Width 16.5 % (11.8-14.3); White Blood Cell 10.6 10^3/uL (4.4-10.8)
[2022-02-05 04:37] LABS: Albumin 2.3 g/dL (3.4-5.0); Calcium 7.8 mg/dL (8.5-10.1); Potassium 5.5 mmol/L (3.5-5.1)
[2022-02-05 04:40] LABS: Bilirubin, Total 1.6 mg/dL (0.2-1.0); Total Protein 5.8 g/dL (6.4-8.2)
[2022-02-05] MEDS: INSULIN LANTUS (GLARGINE) 1 /0.01ml (100units/ml) SC SCH ×2 (06:31→23:04)
[2022-02-05] MEDS: ENOXAPARIN SOD 150 MG/1 ML SYRINGE SC SCH (10:00)
[2022-02-05] MEDS: LINEZOLID 600MG/300ML 300 ML IV SCH ×2 (10:06→21:31)
[2022-02-05] MEDS: PANTOPRAZOLE 40 MG/10 ML VIAL INJ IV SCH (10:06)
[2022-02-05 10:21] LABS: Sodium Urine 7 mmol/L (40-220)
[2022-02-05 10:26] LABS: Creatinine, Urine 200 mg/dL (30.0-125.0)
[2022-02-05] MEDS ORDERED: TPN PER PHARMACY 0 ML IV SCH (13:45)
[2022-02-05 14:34] LABS: Magnesium 2.7 mg/dL (1.6-2.6); Phosphorus 5.2 mg/dL (2.5-4.90)
[2022-02-05] MEDS ORDERED: HEPARIN 1,000 UNITS/ml 1ML VIAL ONE (14:35)
[2022-02-05] MEDS ORDERED: HEPARIN 1,000 UNITS/ml 1ML VIAL IV ONE ×2 (16:15)
[2022-02-05] MEDS: LACTULOSE 20Gm/30ML SOLN PO SCH (16:42)
[2022-02-05] MEDS ORDERED: SODIUM CHL 0.9% 1000 ML BAG XX ONE (17:15)
[2022-02-05] MEDS: AMINO ACID INFUSION IN D10W 1,000 ML IV NR (20:26)
[2022-02-05] MEDS ORDERED: EPOETIN ALFA-EPBX 10,000 UNIT/1ML VIAL SC ONE (21:00)
[2022-02-06] VITALS (107 sets, daily range): BP systolic 84–140; BP diastolic 42–68
[2022-02-06] MEDS: IPRATROPIUM BROM 0.5 MG/2.5ML INH SOL NEB SCH ×4 (00:15→18:01)
[2022-02-06] MEDS: FREE WATER GT SCH ×3 (00:19→11:12)
[2022-02-06] MEDS: LACTULOSE 20Gm/30ML SOLN PO SCH ×4 (00:20→17:13)
[2022-02-06] MEDS: ACCU-CHEK COMFORT CURVE STRIP VI SCH ×5 (00:20→17:45)
[2022-02-06] MEDS: InsuLIN REG 1unit/0.01ml Soln (100units/ml) SC SCH ×4 (00:21→17:45)
[2022-02-06] MEDS: PROPOFOL 100 ML IV SCH ×5 (01:56→20:25)
[2022-02-06] MEDS: MIDAZOLAM DRIP 50 mg/50mL 50 ML IV SCH ×5 (04:00→22:10)
[2022-02-06 04:11] LABS: Basophils # (auto) 0 10 ^3/uL (0-0.2); Basophils % (auto) 0.5 % (0.0-2.0); Eosinophils # (auto) 0.2 10 ^3/uL (0-0.8); Mean Corpuscular Volume 80.9 fL (80.0-100.0); Monocytes # (auto) 0.7 10 ^3/uL (0-1.3)
[2022-02-06 04:14] LABS: Eosinophils % (auto) 1.8 % (0.0-7.0); Hematocrit 37.3 % (41.0-53.0); Lymphocytes # (auto) 0.7 10 ^3/uL (0.4-5.4); Lymphocytes % (auto) 6.9 % (10.0-50.0); Mean Corpuscular Hemoglobin 26.1 pg (28.0-32.0); Mean Corpuscular Hgb Conc. 32.3 g/dL (32.0-36.0); Monocytes % (auto) 7.3 % (0.0-12.0); Neutrophils # (auto) 8.1 10 ^3/uL (1.6-8.6); Neutrophils % (auto) 83.5 % (37.0-80.0); Red Blood Cells 4.61 10^6/uL (4.5-5.90); Red Cell Distribution Width 16.3 % (11.8-14.3); White Blood Cell 9.7 10^3/uL (4.4-10.8)
[2022-02-06 04:22] LABS: Calcium 7.7 mg/dL (8.5-10.1); Magnesium 2.5 mg/dL (1.6-2.6); Potassium 4.9 mmol/L (3.5-5.1)
[2022-02-06 04:24] LABS: BUN/Creatinine Ratio 33.1
[2022-02-06] MEDS: CEFEPIME 1GM/ 50ML 50 ML IV SCH ×2 (04:26→15:41)
[2022-02-06 04:27] LABS: Bilirubin, Total 1.5 mg/dL (0.2-1.0); Phosphorus 4.7 mg/dL (2.5-4.90); Total Protein 5.8 g/dL (6.4-8.2)
[2022-02-06] MEDS: INSULIN LANTUS (GLARGINE) 1 /0.01ml (100units/ml) SC SCH ×2 (06:10→22:27)
[2022-02-06] MEDS: ALBUTEROL SULF 2.5 MG/0.5ML(0.5%) NEB SOLN NEB PRN ×2 (06:34→13:34)
[2022-02-06] MEDS: PANTOPRAZOLE 40 MG/10 ML VIAL INJ IV SCH (08:07)
[2022-02-06] MEDS: LINEZOLID 600MG/300ML 300 ML IV SCH ×2 (08:07→22:10)
[2022-02-06] MEDS: ENOXAPARIN SOD 150 MG/1 ML SYRINGE SC SCH (08:07)
[2022-02-06] MEDS ORDERED: METOCLOPRAMIDE HCL 5MG/ml INJ 2ml VIAL IV ONE (14:00)
[2022-02-06] MEDS ORDERED: DEXTROSE (50%) 50ML SYRG IV PRN (14:00)
[2022-02-06] MEDS: NOREPINEPHRINE 8 MG/250ML KIT 250 ML IV SCH (14:10)
[2022-02-06] MEDS: METOCLOPRAMIDE HCL 5MG/ml INJ 2ml VIAL IV SCH ×2 (15:36→22:10)
[2022-02-06] MEDS: fentaNYL Drip 2500mCg/250mlNS 250 ML IV SCH (18:59)
[2022-02-06] MEDS: AMINO ACID INFUSION IN D10W 1,000 ML IV NR (19:49)
[2022-02-06] MEDS ORDERED: TPN PER PHARMACY IV NR ×5 (20:00)
[2022-02-07] VITALS (106 sets, daily range): BP systolic 82–137; BP diastolic 36–65
[2022-02-07] MEDS: IPRATROPIUM BROM 0.5 MG/2.5ML INH SOL NEB SCH ×4 (00:08→18:30)
[2022-02-07] MEDS: ACCU-CHEK COMFORT CURVE STRIP VI SCH ×6 (00:17→16:22)
[2022-02-07] MEDS: InsuLIN REG 1unit/0.01ml Soln (100units/ml) SC SCH ×4 (00:23→17:09)
[2022-02-07 03:52] LABS: Basophils # (auto) 0.1 10 ^3/uL (0-0.2); Basophils % (auto) 0.6 % (0.0-2.0); Hemoglobin 11.4 g/dL (13.5-17.5); Red Blood Cells 4.38 10^6/uL (4.5-5.90); Red Cell Distribution Width 16.3 % (11.8-14.3); White Blood Cell 10.3 10^3/uL (4.4-10.8)
[2022-02-07 03:58] LABS: Eosinophils # (auto) 0.2 10 ^3/uL (0-0.8); Eosinophils % (auto) 2.2 % (0.0-7.0); Hematocrit 35.3 % (41.0-53.0); Lymphocytes # (auto) 0.8 10 ^3/uL (0.4-5.4); Lymphocytes % (auto) 7.6 % (10.0-50.0); Mean Corpuscular Hgb Conc. 32.3 g/dL (32.0-36.0); Mean Corpuscular Volume 80.5 fL (80.0-100.0); Monocytes # (auto) 0.9 10 ^3/uL (0-1.3); Monocytes % (auto) 8.6 % (0.0-12.0); Neutrophils # (auto) 8.3 10 ^3/uL (1.6-8.6)
[2022-02-07 04:10] LABS: Albumin 1.9 g/dL (3.4-5.0); Calcium 7.5 mg/dL (8.5-10.1); Magnesium 2.7 mg/dL (1.6-2.6); Potassium 4.9 mmol/L (3.5-5.1)
[2022-02-07 04:14] LABS: BUN/Creatinine Ratio 31.7; Bilirubin, Total 1.4 mg/dL (0.2-1.0); Phosphorus 6.5 mg/dL (2.5-4.90); Total Protein 5.9 g/dL (6.4-8.2)
[2022-02-07] MEDS: CEFEPIME 1GM/ 50ML 50 ML IV SCH ×2 (04:36→17:04)
[2022-02-07] MEDS: PROPOFOL 100 ML IV SCH ×3 (04:36→17:08)
[2022-02-07] MEDS: LACTULOSE 20Gm/30ML SOLN PO SCH ×2 (06:00)
[2022-02-07] MEDS: METOCLOPRAMIDE HCL 5MG/ml INJ 2ml VIAL IV SCH ×3 (06:27→22:04)
[2022-02-07] MEDS: INSULIN LANTUS (GLARGINE) 1 /0.01ml (100units/ml) SC SCH ×2 (07:00→22:18)
[2022-02-07] MEDS: LINEZOLID 600MG/300ML 300 ML IV SCH ×2 (08:05→22:04)
[2022-02-07] MEDS: PANTOPRAZOLE 40 MG/10 ML VIAL INJ IV SCH (08:05)
[2022-02-07] MEDS ORDERED: LACTULOSE 20Gm/30ML SOLN PO PRN (13:45)
[2022-02-07] MEDS: NOREPINEPHRINE 8 MG/250ML KIT 250 ML IV SCH (14:30)
[2022-02-07] MEDS: ENOXAPARIN SOD 150 MG/1 ML SYRINGE SC SCH (17:16)
[2022-02-07] MEDS: ALBUTEROL SULF 2.5 MG/0.5ML(0.5%) NEB SOLN NEB PRN (18:30)
[2022-02-07] MEDS: fentaNYL Drip 2500mCg/250mlNS 250 ML IV SCH (18:50)
[2022-02-07] MEDS ORDERED: TPN PER PHARMACY IV NR ×5 (20:00)
[2022-02-08] VITALS (106 sets, daily range): BP systolic 79–166; BP diastolic 32–73
[2022-02-08] MEDS: PROPOFOL 100 ML IV SCH ×4 (00:20→19:50)
[2022-02-08] MEDS: ALBUTEROL SULF 2.5 MG/0.5ML(0.5%) NEB SOLN NEB PRN ×2 (00:21→18:46)
[2022-02-08] MEDS: IPRATROPIUM BROM 0.5 MG/2.5ML INH SOL NEB SCH ×4 (00:21→18:46)
[2022-02-08] MEDS: ACCU-CHEK COMFORT CURVE STRIP VI SCH ×5 (00:43→23:37)
[2022-02-08] MEDS: InsuLIN REG 1unit/0.01ml Soln (100units/ml) SC SCH ×5 (00:45→23:39)
[2022-02-08] MEDS: CEFEPIME 1GM/ 50ML 50 ML IV SCH ×2 (04:31→17:20)
[2022-02-08 04:53] LABS: Basophils # (auto) 0.1 10 ^3/uL (0-0.2); Basophils % (auto) 0.6 % (0.0-2.0); Eosinophils # (auto) 0.2 10 ^3/uL (0-0.8); Eosinophils % (auto) 2.1 % (0.0-7.0); Hematocrit 34.4 % (41.0-53.0); Hemoglobin 11.1 g/dL (13.5-17.5); Lymphocytes # (auto) 0.9 10 ^3/uL (0.4-5.4); Lymphocytes % (auto) 10.2 % (10.0-50.0); Mean Corpuscular Hemoglobin 25.9 pg (28.0-32.0); Mean Corpuscular Hgb Conc. 32.1 g/dL (32.0-36.0); Mean Corpuscular Volume 80.7 fL (80.0-100.0); Monocytes # (auto) 0.7 10 ^3/uL (0-1.3); Monocytes % (auto) 7.9 % (0.0-12.0); Neutrophils # (auto) 6.8 10 ^3/uL (1.6-8.6); Neutrophils % (auto) 79.2 % (37.0-80.0); Red Blood Cells 4.27 10^6/uL (4.5-5.90); Red Cell Distribution Width 16.2 % (11.8-14.3); White Blood Cell 8.6 10^3/uL (4.4-10.8)
[2022-02-08 05:03] LABS: Albumin 1.7 g/dL (3.4-5.0); Calcium 7.4 mg/dL (8.5-10.1); Magnesium 2.7 mg/dL (1.6-2.6); Potassium 4.9 mmol/L (3.5-5.1)
[2022-02-08 05:07] LABS: BUN/Creatinine Ratio 34.2; Bilirubin, Total 1.4 mg/dL (0.2-1.0); Phosphorus 6.3 mg/dL (2.5-4.90); Total Protein 6.4 g/dL (6.4-8.2)
[2022-02-08 05:10] LABS: % Iron Saturation 31.4 % (20-55)
[2022-02-08] MEDS: METOCLOPRAMIDE HCL 5MG/ml INJ 2ml VIAL IV SCH ×3 (06:14→21:27)
[2022-02-08] MEDS ORDERED: SODIUM CHL 0.9% 1000 ML BAG XX ONE ×2 (07:00→08:45)
[2022-02-08] MEDS: fentaNYL Drip 2500mCg/250mlNS 250 ML IV SCH ×2 (08:20→23:05)
[2022-02-08] MEDS: INSULIN LANTUS (GLARGINE) 1 /0.01ml (100units/ml) SC SCH ×2 (08:27→22:07)
[2022-02-08] MEDS: MIDAZOLAM DRIP 50 mg/50mL 50 ML IV SCH (09:00)
[2022-02-08 09:55] LABS: Hepatitis B Core IgM Negative
[2022-02-08 09:56] LABS: Hepatitis A Ab IgM Negative; Hepatitis C Antibody Negative (Negative)
[2022-02-08 11:04] LABS: INR 1.13 (0.9-1.15); Partial Thromboplastin Time 34.7 sec (24.6-33.4)
[2022-02-08] MEDS: DOPamine 1600MCG/ML D5W 250 ML IV SCH (12:22)
[2022-02-08] MEDS: LINEZOLID 600MG/300ML 300 ML IV SCH ×2 (12:29→21:27)
[2022-02-08] MEDS: PANTOPRAZOLE 40 MG/10 ML VIAL INJ IV SCH (12:29)
[2022-02-08] MEDS: ALBUMIN 25% 100 ML IV SCH (13:34)
[2022-02-08] MEDS ORDERED: LABETALOL HCL 5 MG/ML 4ML SYRINGE IV PRN (14:15)
[2022-02-08] MEDS ORDERED: Nepro With Carb Steady 1 Liter Bottle GT SCH (14:15)
[2022-02-08] MEDS: NOREPINEPHRINE 8 MG/250ML KIT 250 ML IV SCH (14:30)
[2022-02-08] MEDS: CALCIUM ACETATE 667 MG CAP NG SCH ×2 (14:52→21:27)
[2022-02-08] MEDS: ENOXAPARIN SOD 150 MG/1 ML SYRINGE SC SCH (14:52)
[2022-02-08] MEDS: BUMETANIDE INJECTION 12.5 MG in GIVE UN-DILUTED 0 ML IV SCH (14:53)
[2022-02-08 16:03] LABS: Urine Amorphous Crystal FEW /hpf (None Seen); Urine Bacteria FEW /hpf (None Seen); Urine Blood 3+ /uL (Negative); Urine Hyaline Cast FEW /lpf (0 - 2); Urine Mucus FEW (None Seen); Urine Specific Gravity 1.019 (1.001-1.035); Urine WBC 33 /hpf (0 - 3)
[2022-02-08] MEDS ORDERED: TPN PER PHARMACY IV NR ×7 (20:00)
[2022-02-08] MEDS ORDERED: EPOETIN ALFA-EPBX 10,000 UNIT/1ML VIAL SC ONE (21:00)
[2022-02-09] VITALS (90 sets, daily range): BP systolic 110–172; BP diastolic 39–75
[2022-02-09] MEDS: PROPOFOL 100 ML IV SCH ×4 (02:03→17:25)
[2022-02-09] MEDS: ALBUTEROL SULF 2.5 MG/0.5ML(0.5%) NEB SOLN NEB PRN ×3 (02:35→22:48)
[2022-02-09] MEDS: IPRATROPIUM BROM 0.5 MG/2.5ML INH SOL NEB SCH ×4 (02:35→18:10)
[2022-02-09] MEDS: CEFEPIME 1GM/ 50ML 50 ML IV SCH ×2 (04:09→17:22)
[2022-02-09 04:35] LABS: Basophils # (auto) 0 10 ^3/uL (0-0.2); Lymphocytes # (auto) 0.6 10 ^3/uL (0.4-5.4)
[2022-02-09 04:37] LABS: Basophils % (auto) 0.4 % (0.0-2.0); Eosinophils # (auto) 0.1 10 ^3/uL (0-0.8); Eosinophils % (auto) 1.5 % (0.0-7.0); Hematocrit 35.6 % (41.0-53.0); Hemoglobin 11.7 g/dL (13.5-17.5); Lymphocytes % (auto) 7.7 % (10.0-50.0); Mean Corpuscular Hemoglobin 26.1 pg (28.0-32.0); Mean Corpuscular Hgb Conc. 32.8 g/dL (32.0-36.0); Mean Corpuscular Volume 79.6 fL (80.0-100.0); Monocytes # (auto) 0.7 10 ^3/uL (0-1.3); Monocytes % (auto) 8.7 % (0.0-12.0); Neutrophils # (auto) 6.3 10 ^3/uL (1.6-8.6); Neutrophils % (auto) 81.7 % (37.0-80.0); Red Blood Cells 4.47 10^6/uL (4.5-5.90); Red Cell Distribution Width 16.2 % (11.8-14.3); White Blood Cell 7.7 10^3/uL (4.4-10.8)
[2022-02-09 04:46] LABS: Albumin 1.9 g/dL (3.4-5.0); BUN/Creatinine Ratio 29.9; Calcium 7.5 mg/dL (8.5-10.1); Magnesium 2.7 mg/dL (1.6-2.6); Phosphorus 7.3 mg/dL (2.5-4.90)
[2022-02-09 04:50] LABS: Total Protein 6.8 g/dL (6.4-8.2)
[2022-02-09] MEDS: DOPamine 1600MCG/ML D5W 250 ML IV SCH ×2 (05:42→08:08)
[2022-02-09] MEDS: CALCIUM ACETATE 667 MG CAP NG SCH ×3 (06:08→21:59)
[2022-02-09] MEDS: METOCLOPRAMIDE HCL 5MG/ml INJ 2ml VIAL IV SCH ×3 (06:08→22:01)
[2022-02-09] MEDS ORDERED: ALBUMIN 25% 100 ML IV PRN (06:15)
[2022-02-09] MEDS ORDERED: SODIUM CHL 0.9% 1000 ML BAG XX ONE (06:15)
[2022-02-09] MEDS: ACCU-CHEK COMFORT CURVE STRIP VI SCH ×3 (06:18→17:14)
[2022-02-09] MEDS: InsuLIN REG 1unit/0.01ml Soln (100units/ml) SC SCH ×3 (06:20→17:20)
[2022-02-09] MEDS: ALBUMIN 25% 100 ML IV SCH ×2 (07:40→07:52)
[2022-02-09] MEDS: BUMETANIDE INJECTION 12.5 MG in GIVE UN-DILUTED 0 ML IV SCH ×2 (07:59→13:39)
[2022-02-09] MEDS: INSULIN LANTUS (GLARGINE) 1 /0.01ml (100units/ml) SC SCH (08:02)
[2022-02-09] MEDS: MIDAZOLAM DRIP 50 mg/50mL 50 ML IV SCH (09:00)
[2022-02-09] MEDS: LINEZOLID 600MG/300ML 300 ML IV SCH ×2 (10:28→21:58)
[2022-02-09] MEDS: PANTOPRAZOLE 40 MG/10 ML VIAL INJ IV SCH (10:28)
[2022-02-09] MEDS: ENOXAPARIN SOD 150 MG/1 ML SYRINGE SC SCH (10:33)
[2022-02-09] MEDS ORDERED: DEXTROSE (50%) 50ML SYRG IV PRN (12:00)
[2022-02-09] MEDS ORDERED: METOPROLOL TARTRATE 25 MG TAB PO ONE (12:15)
[2022-02-09] MEDS: fentaNYL Drip 2500mCg/250mlNS 250 ML IV SCH (13:50)
[2022-02-09] MEDS: NOREPINEPHRINE 8 MG/250ML KIT 250 ML IV SCH (14:30)
[2022-02-09] MEDS ORDERED: DESMOPRESSIN INJECTION 20 MCG in SODIUM CHL 0.9% 50 ML IV ONE (15:15)
[2022-02-09] MEDS ORDERED: LIDOCAINE 1% (LOCAL ANESTH.) PF 5ml SDV ID ONE (16:15)
[2022-02-09] MEDS: hydrALAZINE HCL 20 MG/ML VL IV PRN (20:43)
[2022-02-09] MEDS ORDERED: EPOETIN ALFA-EPBX 4,000 UNIT/ML VIAL SC ONE (21:00)
[2022-02-09] MEDS ORDERED: METOPROLOL TARTRATE 25 MG TAB PO SCH (22:00)
[2022-02-09] MEDS: SODIUM CHLOR 0.9% PF (SALINE LOCK) 10ML VIAL/SYR IV SCH (22:01)
[2022-02-10] VITALS (100 sets, daily range): BP systolic 71–163; BP diastolic 36–82
[2022-02-10] MEDS: IPRATROPIUM BROM 0.5 MG/2.5ML INH SOL NEB SCH ×4 (00:33→18:43)
[2022-02-10] MEDS: ALBUTEROL SULF 2.5 MG/0.5ML(0.5%) NEB SOLN NEB PRN (00:33)
[2022-02-10] MEDS: INSULIN LANTUS (GLARGINE) 1 /0.01ml (100units/ml) SC SCH ×3 (00:53→22:10)
[2022-02-10] MEDS: BUMETANIDE INJECTION 12.5 MG in GIVE UN-DILUTED 0 ML IV SCH ×3 (00:54→22:51)
[2022-02-10] MEDS: InsuLIN REG 1unit/0.01ml Soln (100units/ml) SC SCH ×4 (00:55→17:55)
[2022-02-10] MEDS: ACCU-CHEK COMFORT CURVE STRIP VI SCH ×5 (00:55→23:58)
[2022-02-10] MEDS: PROPOFOL 100 ML IV SCH ×5 (00:58→20:16)
[2022-02-10 04:03] LABS: Basophils # (auto) 0.1 10 ^3/uL (0-0.2); Basophils % (auto) 0.6 % (0.0-2.0); Monocytes # (auto) 0.6 10 ^3/uL (0-1.3)
[2022-02-10 04:05] LABS: Eosinophils # (auto) 0.1 10 ^3/uL (0-0.8); Eosinophils % (auto) 1.2 % (0.0-7.0); Hematocrit 35.5 % (41.0-53.0); Hemoglobin 11.9 g/dL (13.5-17.5); Lymphocytes # (auto) 0.6 10 ^3/uL (0.4-5.4); Lymphocytes % (auto) 5.1 % (10.0-50.0); Mean Corpuscular Hemoglobin 26.6 pg (28.0-32.0); Mean Corpuscular Hgb Conc. 33.6 g/dL (32.0-36.0); Mean Corpuscular Volume 79.2 fL (80.0-100.0); Monocytes % (auto) 5.3 % (0.0-12.0); Neutrophils # (auto) 9.5 10 ^3/uL (1.6-8.6); Neutrophils % (auto) 87.8 % (37.0-80.0); Red Blood Cells 4.49 10^6/uL (4.5-5.90); Red Cell Distribution Width 16.2 % (11.8-14.3); White Blood Cell 10.8 10^3/uL (4.4-10.8)
[2022-02-10] MEDS: CEFEPIME 1GM/ 50ML 50 ML IV SCH ×2 (04:19→16:02)
[2022-02-10 04:33] LABS: Calcium 8.2 mg/dL (8.5-10.1); Potassium 5.5 mmol/L (3.5-5.1)
[2022-02-10 04:36] LABS: BUN/Creatinine Ratio 28.5; Bilirubin, Total 2.4 mg/dL (0.2-1.0); Total Protein 7.9 g/dL (6.4-8.2)
[2022-02-10] MEDS: DOPamine 1600MCG/ML D5W 250 ML IV SCH (06:38)
[2022-02-10] MEDS: METOCLOPRAMIDE HCL 5MG/ml INJ 2ml VIAL IV SCH ×3 (06:54→21:58)
[2022-02-10] MEDS ORDERED: SODIUM CHL 0.9% 1000 ML BAG XX ONE (07:00)
[2022-02-10] MEDS: CALCIUM ACETATE 667 MG CAP NG SCH ×3 (07:34→21:58)
[2022-02-10] MEDS: MIDAZOLAM DRIP 50 mg/50mL 50 ML IV SCH (09:00)
[2022-02-10] MEDS: PANTOPRAZOLE 40 MG/10 ML VIAL INJ IV SCH (10:00)
[2022-02-10] MEDS: LINEZOLID 600MG/300ML 300 ML IV SCH ×2 (10:00→21:58)
[2022-02-10] MEDS: ENOXAPARIN SOD 150 MG/1 ML SYRINGE SC SCH (10:00)
[2022-02-10] MEDS ORDERED: AMIODARONE HCL 150 MG in D5W 5% 100 ML IV ONE (10:00)
[2022-02-10] MEDS ORDERED: CALCIUM CHLOR(10%) 100MG/ML 10ML SYRINGE IV ONE (10:11)
[2022-02-10] MEDS ORDERED: CALCIUM CHL 100MG/ML 1,000 MG in D5W 5% 100 ML IV ONE (10:30)
[2022-02-10] MEDS ORDERED: TPN PER PHARMACY 0 ML IV SCH (10:30)
[2022-02-10] MEDS: NOREPINEPHRINE 8 MG/250ML KIT 250 ML IV SCH (11:20)
[2022-02-10 11:21] LABS: Magnesium 2.6 mg/dL (1.6-2.6)
[2022-02-10] MEDS: SODIUM CHLOR 0.9% PF (SALINE LOCK) 10ML VIAL/SYR IV SCH ×2 (12:46→21:58)
[2022-02-10] MEDS ORDERED: TPN PER PHARMACY IV NR ×6 (20:00)
[2022-02-10] MEDS ORDERED: EPOETIN ALFA-EPBX 10,000 UNIT/1ML VIAL SC ONE (21:00)
[2022-02-10] MEDS: fentaNYL Drip 2500mCg/250mlNS 250 ML IV SCH (22:42)
[2022-02-11] VITALS (108 sets, daily range): BP systolic 79–195; BP diastolic 37–79
[2022-02-11] MEDS: InsuLIN REG 1unit/0.01ml Soln (100units/ml) SC SCH ×4 (00:04→17:59)
[2022-02-11] MEDS: PROPOFOL 100 ML IV SCH ×6 (00:25→23:07)
[2022-02-11] MEDS: IPRATROPIUM BROM 0.5 MG/2.5ML INH SOL NEB SCH ×4 (00:28→18:17)
[2022-02-11] MEDS: CEFEPIME 1GM/ 50ML 50 ML IV SCH ×2 (03:49→16:53)
[2022-02-11 04:19] LABS: Eosinophils # (auto) 0.1 10 ^3/uL (0-0.8); Lymphocytes # (auto) 0.6 10 ^3/uL (0.4-5.4); Mean Corpuscular Hemoglobin 25.9 pg (28.0-32.0); Monocytes # (auto) 0.6 10 ^3/uL (0-1.3); Nucleated Red Blood Cells % 0.1 %
[2022-02-11 04:22] LABS: Basophils # (auto) 0 10 ^3/uL (0-0.2); Basophils % (auto) 0.7 % (0.0-2.0); Eosinophils % (auto) 1.7 % (0.0-7.0); Hematocrit 31.7 % (41.0-53.0); Hemoglobin 10.3 g/dL (13.5-17.5); Lymphocytes % (auto) 9.2 % (10.0-50.0); Mean Corpuscular Hgb Conc. 32.6 g/dL (32.0-36.0); Mean Corpuscular Volume 79.3 fL (80.0-100.0); Monocytes % (auto) 8.7 % (0.0-12.0); Neutrophils # (auto) 5.5 10 ^3/uL (1.6-8.6); Neutrophils % (auto) 79.7 % (37.0-80.0); White Blood Cell 6.9 10^3/uL (4.4-10.8)
[2022-02-11 04:32] LABS: Potassium 4.3 mmol/L (3.5-5.1)
[2022-02-11 04:36] LABS: Albumin 2.3 g/dL (3.4-5.0); BUN/Creatinine Ratio 29.6; Calcium 8.6 mg/dL (8.5-10.1); Magnesium 2.3 mg/dL (1.6-2.6)
[2022-02-11 04:39] LABS: Bilirubin, Total 1.6 mg/dL (0.2-1.0); Phosphorus 6.2 mg/dL (2.5-4.90); Total Protein 7.4 g/dL (6.4-8.2)
[2022-02-11] MEDS: ACCU-CHEK COMFORT CURVE STRIP VI SCH ×3 (06:14→17:47)
[2022-02-11] MEDS: CALCIUM ACETATE 667 MG CAP NG SCH ×3 (06:17→21:59)
[2022-02-11] MEDS: METOCLOPRAMIDE HCL 5MG/ml INJ 2ml VIAL IV SCH ×3 (06:17→21:59)
[2022-02-11] MEDS: INSULIN LANTUS (GLARGINE) 1 /0.01ml (100units/ml) SC SCH ×2 (07:22→22:01)
[2022-02-11] MEDS: SODIUM CHLOR 0.9% PF (SALINE LOCK) 10ML VIAL/SYR IV SCH ×2 (07:57→21:59)
[2022-02-11] MEDS: MIDAZOLAM DRIP 50 mg/50mL 50 ML IV SCH (08:16)
[2022-02-11] MEDS: NOREPINEPHRINE 8 MG/250ML KIT 250 ML IV SCH (08:18)
[2022-02-11] MEDS: PANTOPRAZOLE 40 MG/10 ML VIAL INJ IV SCH (09:23)
[2022-02-11] MEDS: ENOXAPARIN SOD 150 MG/1 ML SYRINGE SC SCH (09:24)
[2022-02-11] MEDS ORDERED: ALBUMIN 25% 100 ML IV ONE (09:30)
[2022-02-11] MEDS ORDERED: HEPARIN 1,000 UNITS/ml 1ML VIAL IV ONE (09:30)
[2022-02-11] MEDS ORDERED: HEPARIN SODIUM (PORCINE) 5000 UNITS/ML 1ML VIAL IV ONE (10:00)
[2022-02-11] MEDS: LINEZOLID 600MG/300ML 300 ML IV SCH ×2 (11:48→21:59)
[2022-02-11] MEDS: BUMETANIDE INJECTION 12.5 MG in GIVE UN-DILUTED 0 ML IV SCH (11:48)
[2022-02-11] MEDS ORDERED: FLUCONAZOLE 200MG/100ML 100 ML IV ONE (14:30)
[2022-02-11] MEDS: LACTULOSE 20Gm/30ML SOLN PO SCH (16:52)
[2022-02-11] MEDS ORDERED: TPN PER PHARMACY IV NR ×5 (20:00)
[2022-02-12] VITALS (109 sets, daily range): BP systolic 95–181; BP diastolic 34–76
[2022-02-12] MEDS: ACCU-CHEK COMFORT CURVE STRIP VI SCH ×5 (00:09→23:46)
[2022-02-12] MEDS: LACTULOSE 20Gm/30ML SOLN PO SCH ×5 (00:11→23:48)
[2022-02-12] MEDS: IPRATROPIUM BROM 0.5 MG/2.5ML INH SOL NEB SCH ×4 (00:18→18:16)
[2022-02-12] MEDS: InsuLIN REG 1unit/0.01ml Soln (100units/ml) SC SCH ×4 (00:31→17:15)
[2022-02-12] MEDS: fentaNYL Drip 2500mCg/250mlNS 250 ML IV SCH ×2 (00:50→16:16)
[2022-02-12] MEDS: BUMETANIDE INJECTION 12.5 MG in GIVE UN-DILUTED 0 ML IV SCH ×3 (01:30→16:40)
[2022-02-12] MEDS: PROPOFOL 100 ML IV SCH ×7 (02:25→23:45)
[2022-02-12] MEDS: CEFEPIME 1GM/ 50ML 50 ML IV SCH ×2 (04:04→16:39)
[2022-02-12 04:50] LABS: Basophils # (auto) 0.1 10 ^3/uL (0-0.2); Basophils % (auto) 0.7 % (0.0-2.0); Eosinophils # (auto) 0.3 10 ^3/uL (0-0.8); Eosinophils % (auto) 3.4 % (0.0-7.0); Hemoglobin 10.4 g/dL (13.5-17.5); Lymphocytes # (auto) 0.9 10 ^3/uL (0.4-5.4); Mean Corpuscular Hemoglobin 29.2 pg (28.0-32.0); Mean Corpuscular Hgb Conc. 35.8 g/dL (32.0-36.0); Mean Corpuscular Volume 81.6 fL (80.0-100.0); Monocytes # (auto) 0.7 10 ^3/uL (0-1.3); Neutrophils % (auto) 75.9 % (37.0-80.0); Nucleated Red Blood Cells % 0.3 %; Red Blood Cells 3.56 10^6/uL (4.5-5.90); Red Cell Distribution Width 16.2 % (11.8-14.3); White Blood Cell 7.9 10^3/uL (4.4-10.8)
[2022-02-12] MEDS: CALCIUM ACETATE 667 MG CAP NG SCH ×3 (06:09→21:56)
[2022-02-12] MEDS: METOCLOPRAMIDE HCL 5MG/ml INJ 2ml VIAL IV SCH ×3 (06:09→22:06)
[2022-02-12] MEDS: INSULIN LANTUS (GLARGINE) 1 /0.01ml (100units/ml) SC SCH ×2 (06:37→22:13)
[2022-02-12 07:23] LABS: Albumin 2.2 g/dL (3.4-5.0); Calcium 8.4 mg/dL (8.5-10.1); Magnesium 2.2 mg/dL (1.6-2.6); Potassium 3.9 mmol/L (3.5-5.1)
[2022-02-12 07:31] LABS: BUN/Creatinine Ratio 28.1; Bilirubin, Total 1.2 mg/dL (0.2-1.0); Phosphorus 5.2 mg/dL (2.5-4.90); Total Protein 7.2 g/dL (6.4-8.2)
[2022-02-12] MEDS: MIDAZOLAM DRIP 50 mg/50mL 50 ML IV SCH (07:38)
[2022-02-12] MEDS: SODIUM CHLOR 0.9% PF (SALINE LOCK) 10ML VIAL/SYR IV SCH ×2 (07:39→21:55)
[2022-02-12] MEDS: PANTOPRAZOLE 40 MG/10 ML VIAL INJ IV SCH (08:43)
[2022-02-12] MEDS: ENOXAPARIN SOD 150 MG/1 ML SYRINGE SC SCH (08:43)
[2022-02-12] MEDS: FLUCONAZOLE 200MG/100ML 100 ML IV SCH (08:44)
[2022-02-12] MEDS: LINEZOLID 600MG/300ML 300 ML IV SCH ×2 (08:44→21:56)
[2022-02-12] MEDS: DOPamine 1600MCG/ML D5W 250 ML IV SCH (12:18)
[2022-02-12] MEDS: hydrALAZINE HCL 20 MG/ML VL IV PRN (12:44)
[2022-02-12] MEDS: ALBUMIN 25% 100 ML IV PRN (14:28)
[2022-02-12] MEDS: NOREPINEPHRINE 8 MG/250ML KIT 250 ML IV SCH (14:30)
[2022-02-12] MEDS ORDERED: TPN PER PHARMACY IV NR ×7 (20:00)
[2022-02-13] VITALS (105 sets, daily range): BP systolic 63–170; BP diastolic 35–84
[2022-02-13] MEDS: IPRATROPIUM BROM 0.5 MG/2.5ML INH SOL NEB SCH ×4 (00:33→18:17)
[2022-02-13] MEDS: PROPOFOL 100 ML IV SCH ×8 (01:50→22:59)
[2022-02-13] MEDS: BUMETANIDE INJECTION 12.5 MG in GIVE UN-DILUTED 0 ML IV SCH ×2 (02:30→15:00)
[2022-02-13] MEDS: CEFEPIME 1GM/ 50ML 50 ML IV SCH ×2 (03:42→16:11)
[2022-02-13 04:01] LABS: Lymphocytes # (auto) 0.7 10 ^3/uL (0.4-5.4); Monocytes # (auto) 0.7 10 ^3/uL (0-1.3)
[2022-02-13] MEDS: fentaNYL Drip 2500mCg/250mlNS 250 ML IV SCH ×2 (04:09→15:01)
[2022-02-13 04:15] LABS: Potassium 3.4 mmol/L (3.5-5.1)
[2022-02-13 04:17] LABS: Basophils # (auto) 0.1 10 ^3/uL (0-0.2); Mean Corpuscular Hgb Conc. 32.2 g/dL (32.0-36.0); Neutrophils % (auto) 78.3 % (37.0-80.0)
[2022-02-13 04:19] LABS: Basophils % (auto) 1.4 % (0.0-2.0); Eosinophils # (auto) 0.2 10 ^3/uL (0-0.8); Eosinophils % (auto) 2.8 % (0.0-7.0); Hematocrit 34.4 % (41.0-53.0); Hemoglobin 11.1 g/dL (13.5-17.5); Lymphocytes % (auto) 8.7 % (10.0-50.0); Mean Corpuscular Volume 80.8 fL (80.0-100.0); Monocytes % (auto) 8.8 % (0.0-12.0); Neutrophils # (auto) 6.4 10 ^3/uL (1.6-8.6); Nucleated Red Blood Cells % 0.2 %; Red Blood Cells 4.26 10^6/uL (4.5-5.90); Red Cell Distribution Width 16.3 % (11.8-14.3); White Blood Cell 8.2 10^3/uL (4.4-10.8)
[2022-02-13 04:21] LABS: Albumin 2.5 g/dL (3.4-5.0); BUN/Creatinine Ratio 21.9; Bilirubin, Total 1.1 mg/dL (0.2-1.0); Calcium 8.7 mg/dL (8.5-10.1); Magnesium 2.2 mg/dL (1.6-2.6); Phosphorus 3.2 mg/dL (2.5-4.90); Total Protein 7.8 g/dL (6.4-8.2)
[2022-02-13] MEDS: METOCLOPRAMIDE HCL 5MG/ml INJ 2ml VIAL IV SCH ×3 (05:47→22:00)
[2022-02-13] MEDS: CALCIUM ACETATE 667 MG CAP NG SCH ×4 (05:47→22:08)
[2022-02-13] MEDS: LACTULOSE 20Gm/30ML SOLN PO SCH ×3 (05:47→17:16)
[2022-02-13] MEDS: ACCU-CHEK COMFORT CURVE STRIP VI SCH ×3 (05:48→16:57)
[2022-02-13] MEDS: InsuLIN REG 1unit/0.01ml Soln (100units/ml) SC SCH ×4 (05:59→16:57)
[2022-02-13] MEDS: INSULIN LANTUS (GLARGINE) 1 /0.01ml (100units/ml) SC SCH ×2 (06:51→22:00)
[2022-02-13] MEDS: SODIUM CHLOR 0.9% PF (SALINE LOCK) 10ML VIAL/SYR IV SCH ×2 (08:09→22:00)
[2022-02-13] MEDS: DOPamine 1600MCG/ML D5W 250 ML IV SCH (08:09)
[2022-02-13] MEDS: MIDAZOLAM DRIP 50 mg/50mL 50 ML IV SCH (08:09)
[2022-02-13] MEDS: FLUCONAZOLE 200MG/100ML 100 ML IV SCH (09:25)
[2022-02-13] MEDS: LINEZOLID 600MG/300ML 300 ML IV SCH ×2 (09:25→22:08)
[2022-02-13] MEDS: ENOXAPARIN SOD 150 MG/1 ML SYRINGE SC SCH (09:25)
[2022-02-13] MEDS: PANTOPRAZOLE 40 MG/10 ML VIAL INJ IV SCH (09:25)
[2022-02-13] MEDS ORDERED: SODIUM CHL 0.9% 1000 ML BAG XX ONE (10:30)
[2022-02-13] MEDS: POTASSIUM CHL 20MEQ/100ML 100 ML IV SCH ×2 (11:26→12:15)
[2022-02-13] MEDS: NOREPINEPHRINE 8 MG/250ML KIT 250 ML IV SCH (14:30)
[2022-02-13] MEDS ORDERED: SENNA 8.6 MG TAB PO ONE (16:45)
[2022-02-13] MEDS ORDERED: DOCUSATE ORAL LIQUID 100 MG/10 ML UD GT ONE (16:45)
[2022-02-13] MEDS ORDERED: TPN PER PHARMACY IV NR ×6 (20:00)
[2022-02-14] VITALS (108 sets, daily range): BP systolic 89–175; BP diastolic 34–72
[2022-02-14] MEDS: IPRATROPIUM BROM 0.5 MG/2.5ML INH SOL NEB SCH ×4 (00:10→18:32)
[2022-02-14] MEDS: fentaNYL Drip 2500mCg/250mlNS 250 ML IV SCH ×2 (03:23→18:34)
[2022-02-14] MEDS: ACETAMINOPHEN 325 MG TAB PO PRN (03:30)
[2022-02-14] MEDS: BUMETANIDE INJECTION 12.5 MG in GIVE UN-DILUTED 0 ML IV SCH ×2 (03:30→08:26)
[2022-02-14 03:55] LABS: Eosinophils # (auto) 0.2 10 ^3/uL (0-0.8); Hemoglobin 9.5 g/dL (13.5-17.5); Lymphocytes % (auto) 4.9 % (10.0-50.0); Nucleated Red Blood Cells % 0.1 %
[2022-02-14 03:57] LABS: Basophils # (auto) 0.2 10 ^3/uL (0-0.2); Basophils % (auto) 1.1 % (0.0-2.0); Eosinophils % (auto) 1.4 % (0.0-7.0); Hematocrit 35.2 % (41.0-53.0); Lymphocytes # (auto) 0.7 10 ^3/uL (0.4-5.4); Mean Corpuscular Hemoglobin 27.2 pg (28.0-32.0); Mean Corpuscular Hgb Conc. 26.9 g/dL (32.0-36.0); Monocytes % (auto) 6.3 % (0.0-12.0); Neutrophils # (auto) 13.1 10 ^3/uL (1.6-8.6); Neutrophils % (auto) 86.3 % (37.0-80.0); Red Blood Cells 3.48 10^6/uL (4.5-5.90); Red Cell Distribution Width 18.3 % (11.8-14.3); White Blood Cell 15.2 10^3/uL (4.4-10.8)
[2022-02-14] MEDS: CEFEPIME 1GM/ 50ML 50 ML IV SCH ×2 (04:00→16:00)
[2022-02-14 05:30] LABS: Alanine Aminotransferase 52 U/L (16-61); Alkaline Phosphatase 198 U/L (45-117); Anion Gap 12 (5-15); Aspartate Aminotransferase 65 U/L (15-37); BUN/Creatinine Ratio 16.8; Blood Urea Nitrogen 62 mg/dL (7-18); Carbon Dioxide 22 mmol/L (21-32); Chloride 95 mmol/L (98-107); GFR African American 22 mL/min; GFR Non-African American 18 mL/min; Glucose 291 mg/dL (74-106); Potassium 3.9 mmol/L (3.5-5.1); Sodium 129 mmol/L (136-145)
[2022-02-14 05:31] LABS: Albumin 2.5 g/dL (3.4-5.0); Bilirubin, Total 1.3 mg/dL (0.2-1.0); Calcium 9.5 mg/dL (8.5-10.1); Magnesium 1.8 mg/dL (1.6-2.6); Phosphorus 2.8 mg/dL (2.5-4.90); Total Protein 8.9 g/dL (6.4-8.2)
[2022-02-14] MEDS: LACTULOSE 20Gm/30ML SOLN PO SCH ×3 (06:00→11:18)
[2022-02-14] MEDS: InsuLIN REG 1unit/0.01ml Soln (100units/ml) SC SCH ×4 (06:00→18:13)
[2022-02-14] MEDS: CALCIUM ACETATE 667 MG CAP NG SCH ×4 (06:00→22:00)
[2022-02-14] MEDS: METOCLOPRAMIDE HCL 5MG/ml INJ 2ml VIAL IV SCH ×3 (06:00→22:01)
[2022-02-14] MEDS: ACCU-CHEK COMFORT CURVE STRIP VI SCH ×4 (06:00→18:12)
[2022-02-14] MEDS: DOPamine 1600MCG/ML D5W 250 ML IV SCH ×2 (06:19→08:25)
[2022-02-14] MEDS: INSULIN LANTUS (GLARGINE) 1 /0.01ml (100units/ml) SC SCH ×2 (07:00→22:04)
[2022-02-14] MEDS: PROPOFOL 100 ML IV SCH ×3 (08:25→22:16)
[2022-02-14] MEDS: MIDAZOLAM DRIP 50 mg/50mL 50 ML IV SCH (09:00)
[2022-02-14] MEDS: SODIUM CHLOR 0.9% PF (SALINE LOCK) 10ML VIAL/SYR IV SCH ×2 (10:00→22:01)
[2022-02-14] MEDS: PANTOPRAZOLE 40 MG/10 ML VIAL INJ IV SCH (11:04)
[2022-02-14] MEDS: ENOXAPARIN SOD 150 MG/1 ML SYRINGE SC SCH (11:04)
[2022-02-14] MEDS: FLUCONAZOLE 200MG/100ML 100 ML IV SCH (11:04)
[2022-02-14] MEDS: LINEZOLID 600MG/300ML 300 ML IV SCH ×2 (11:11→22:01)
[2022-02-14] MEDS ORDERED: SODIUM CHL 0.9% 1000 ML BAG XX ONE (13:30)
[2022-02-14] MEDS: NOREPINEPHRINE 8 MG/250ML KIT 250 ML IV SCH ×2 (14:30→18:27)
[2022-02-14] MEDS: ALBUMIN 25% 100 ML IV SCH ×2 (16:33→16:41)
[2022-02-14] MEDS ORDERED: TPN PER PHARMACY IV NR ×8 (20:00)
[2022-02-14] MEDS ORDERED: EPOETIN ALFA-EPBX 10,000 UNIT/1ML VIAL SC ONE (21:00)
[2022-02-15] VITALS (104 sets, daily range): BP systolic 89–181; BP diastolic 32–75
[2022-02-15] MEDS: ACCU-CHEK COMFORT CURVE STRIP VI SCH ×4 (00:08→18:29)
[2022-02-15] MEDS: InsuLIN REG 1unit/0.01ml Soln (100units/ml) SC SCH ×4 (00:09→20:15)
[2022-02-15] MEDS: IPRATROPIUM BROM 0.5 MG/2.5ML INH SOL NEB SCH ×3 (00:59→23:48)
[2022-02-15] MEDS: PROPOFOL 100 ML IV SCH ×4 (01:09→10:40)
[2022-02-15] MEDS: CEFEPIME 1GM/ 50ML 50 ML IV SCH (03:44)
[2022-02-15 04:23] LABS: Basophils # (auto) 0.1 10 ^3/uL (0-0.2); Eosinophils # (auto) 0.1 10 ^3/uL (0-0.8); Mean Corpuscular Hemoglobin 25.7 pg (28.0-32.0); Mean Corpuscular Hgb Conc. 31.8 g/dL (32.0-36.0); Neutrophils # (auto) 11.3 10 ^3/uL (1.6-8.6)
[2022-02-15 04:26] LABS: Basophils % (auto) 0.7 % (0.0-2.0); Eosinophils % (auto) 0.8 % (0.0-7.0); Hematocrit 30.6 % (41.0-53.0); Hemoglobin 9.7 g/dL (13.5-17.5); Lymphocytes # (auto) 0.7 10 ^3/uL (0.4-5.4); Lymphocytes % (auto) 5.6 % (10.0-50.0); Mean Corpuscular Volume 80.7 fL (80.0-100.0); Monocytes # (auto) 0.8 10 ^3/uL (0-1.3); Monocytes % (auto) 5.9 % (0.0-12.0); Red Blood Cells 3.79 10^6/uL (4.5-5.90); Red Cell Distribution Width 16.5 % (11.8-14.3)
[2022-02-15 04:36] LABS: Albumin 2.6 g/dL (3.4-5.0); BUN/Creatinine Ratio 18.8; Bilirubin, Total 1.4 mg/dL (0.2-1.0); Calcium 8.9 mg/dL (8.5-10.1); Phosphorus 2.1 mg/dL (2.5-4.90); Potassium 4.1 mmol/L (3.5-5.1); Total Protein 8.1 g/dL (6.4-8.2)
[2022-02-15] MEDS: METOCLOPRAMIDE HCL 5MG/ml INJ 2ml VIAL IV SCH ×3 (05:39→22:24)
[2022-02-15] MEDS: CALCIUM ACETATE 667 MG CAP NG SCH (05:43)
[2022-02-15] MEDS: DOPamine 1600MCG/ML D5W 250 ML IV SCH (05:47)
[2022-02-15] MEDS: INSULIN LANTUS (GLARGINE) 1 /0.01ml (100units/ml) SC SCH ×2 (06:18→22:24)
[2022-02-15] MEDS: ALBUMIN 25% 100 ML IV PRN ×2 (06:55→09:17)
[2022-02-15] MEDS ORDERED: SODIUM CHL 0.9% 1000 ML BAG XX ONE (07:15)
[2022-02-15] MEDS: MIDAZOLAM DRIP 50 mg/50mL 50 ML IV SCH ×3 (09:00→23:14)
[2022-02-15] MEDS: ENOXAPARIN SOD 150 MG/1 ML SYRINGE SC SCH (10:00)
[2022-02-15] MEDS: SODIUM CHLOR 0.9% PF (SALINE LOCK) 10ML VIAL/SYR IV SCH ×2 (10:00→22:25)
[2022-02-15] MEDS: FLUCONAZOLE 200MG/100ML 100 ML IV SCH (10:32)
[2022-02-15] MEDS: LINEZOLID 600MG/300ML 300 ML IV SCH ×2 (10:33→22:24)
[2022-02-15] MEDS: PANTOPRAZOLE 40 MG/10 ML VIAL INJ IV SCH (10:33)
[2022-02-15] MEDS: ACETAMINOPHEN 325 MG TAB PO PRN (11:00)
[2022-02-15] MEDS ORDERED: SODIUM PHOSP 20MEQ(15MMOL) IN NS 100 ML IV ONE ×2 (11:15→15:45)
[2022-02-15] MEDS: NOREPINEPHRINE 8 MG/250ML KIT 250 ML IV SCH (13:16)
[2022-02-15 16:58] LABS: Urine Amorphous Crystal FEW /hpf (None Seen); Urine Bacteria NONE SEEN /hpf (None Seen); Urine Blood 3+ /uL (Negative); Urine Hyaline Cast FEW /lpf (0 - 2); Urine Specific Gravity 1.025 (1.001-1.035); Urine Sperm PRESENT /hpf (None Seen); Urine WBC 210 /hpf (0 - 3)
[2022-02-15] MEDS: fentaNYL Drip 2500mCg/250mlNS 250 ML IV SCH (18:28)
[2022-02-15] MEDS ORDERED: TPN PER PHARMACY IV NR ×9 (20:00)
[2022-02-15] MEDS ORDERED: EPOETIN ALFA-EPBX 10,000 UNIT/1ML VIAL SC ONE (21:00)
[2022-02-16] VITALS (107 sets, daily range): BP systolic 90–138; BP diastolic 39–74
[2022-02-16] MEDS: ACCU-CHEK COMFORT CURVE STRIP VI SCH ×4 (00:16→17:20)
[2022-02-16] MEDS: InsuLIN REG 1unit/0.01ml Soln (100units/ml) SC SCH ×4 (00:18→18:54)
[2022-02-16] MEDS: MIDAZOLAM DRIP 50 mg/50mL 50 ML IV SCH ×4 (03:04→16:02)
[2022-02-16] MEDS: DOPamine 1600MCG/ML D5W 250 ML IV SCH (03:37)
[2022-02-16 04:11] LABS: Basophils # (auto) 0.1 10 ^3/uL (0-0.2); Eosinophils # (auto) 0.1 10 ^3/uL (0-0.8); Eosinophils % (auto) 1.6 % (0.0-7.0); Lymphocytes # (auto) 0.6 10 ^3/uL (0.4-5.4); Monocytes # (auto) 0.7 10 ^3/uL (0-1.3); Neutrophils # (auto) 7.2 10 ^3/uL (1.6-8.6); White Blood Cell 8.7 10^3/uL (4.4-10.8)
[2022-02-16 04:14] LABS: Basophils % (auto) 1.1 % (0.0-2.0); Hematocrit 28.9 % (41.0-53.0); Hemoglobin 9.3 g/dL (13.5-17.5); Lymphocytes % (auto) 6.7 % (10.0-50.0); Mean Corpuscular Hemoglobin 25.9 pg (28.0-32.0); Mean Corpuscular Hgb Conc. 32.1 g/dL (32.0-36.0); Mean Corpuscular Volume 80.6 fL (80.0-100.0); Monocytes % (auto) 7.8 % (0.0-12.0); Neutrophils % (auto) 82.8 % (37.0-80.0); Nucleated Red Blood Cells % 0.1 %; Red Blood Cells 3.59 10^6/uL (4.5-5.90); Red Cell Distribution Width 16.7 % (11.8-14.3)
[2022-02-16 04:31] LABS: Potassium 3.7 mmol/L (3.5-5.1)
[2022-02-16 04:34] LABS: Albumin 2.6 g/dL (3.4-5.0); BUN/Creatinine Ratio 19.5; Calcium 9.4 mg/dL (8.5-10.1); Magnesium 2.1 mg/dL (1.6-2.6)
[2022-02-16 04:47] LABS: Bilirubin, Total 0.9 mg/dL (0.2-1.0); Phosphorus 2.9 mg/dL (2.5-4.90); Total Protein 8.5 g/dL (6.4-8.2)
[2022-02-16] MEDS: METOCLOPRAMIDE HCL 5MG/ml INJ 2ml VIAL IV SCH ×3 (05:38→21:55)
[2022-02-16] MEDS: IPRATROPIUM BROM 0.5 MG/2.5ML INH SOL NEB SCH ×4 (06:21→23:40)
[2022-02-16] MEDS: INSULIN LANTUS (GLARGINE) 1 /0.01ml (100units/ml) SC SCH ×2 (06:25→21:57)
[2022-02-16] MEDS: SODIUM CHLOR 0.9% PF (SALINE LOCK) 10ML VIAL/SYR IV SCH ×2 (09:08→21:55)
[2022-02-16] MEDS: ENOXAPARIN SOD 150 MG/1 ML SYRINGE SC SCH (09:08)
[2022-02-16] MEDS: FLUCONAZOLE 200MG/100ML 100 ML IV SCH (09:08)
[2022-02-16] MEDS: PANTOPRAZOLE 40 MG/10 ML VIAL INJ IV SCH (09:08)
[2022-02-16] MEDS: LINEZOLID 600MG/300ML 300 ML IV SCH ×2 (09:08→21:56)
[2022-02-16] MEDS: NOREPINEPHRINE 8 MG/250ML KIT 250 ML IV SCH (14:30)
[2022-02-16] MEDS: PROPOFOL 100 ML IV SCH ×2 (16:01→21:25)
[2022-02-16] MEDS: fentaNYL Drip 2500mCg/250mlNS 250 ML IV SCH (16:02)
[2022-02-16] MEDS ORDERED: SENNA 8.6 MG TAB PO ONE (17:30)
[2022-02-16] MEDS ORDERED: TPN PER PHARMACY IV NR ×10 (20:00)
[2022-02-17] VITALS (107 sets, daily range): BP systolic 84–179; BP diastolic 37–87
[2022-02-17] MEDS: ACCU-CHEK COMFORT CURVE STRIP VI SCH ×4 (00:05→18:23)
[2022-02-17] MEDS: InsuLIN REG 1unit/0.01ml Soln (100units/ml) SC SCH ×4 (00:06→18:25)
[2022-02-17] MEDS: MIDAZOLAM DRIP 50 mg/50mL 50 ML IV SCH ×5 (00:07→22:33)
[2022-02-17 05:11] LABS: Basophils # (auto) 0.1 10 ^3/uL (0-0.2); Eosinophils # (auto) 0.2 10 ^3/uL (0-0.8); Hemoglobin 8.9 g/dL (13.5-17.5); Lymphocytes # (auto) 0.7 10 ^3/uL (0.4-5.4)
[2022-02-17 05:14] LABS: Basophils % (auto) 0.9 % (0.0-2.0); Eosinophils % (auto) 2.2 % (0.0-7.0); Hematocrit 27.5 % (41.0-53.0); Lymphocytes % (auto) 8.1 % (10.0-50.0); Mean Corpuscular Hemoglobin 26.1 pg (28.0-32.0); Mean Corpuscular Hgb Conc. 32.4 g/dL (32.0-36.0); Mean Corpuscular Volume 80.4 fL (80.0-100.0); Monocytes # (auto) 0.7 10 ^3/uL (0-1.3); Monocytes % (auto) 8.1 % (0.0-12.0); Neutrophils # (auto) 6.9 10 ^3/uL (1.6-8.6); Neutrophils % (auto) 80.7 % (37.0-80.0); Nucleated Red Blood Cells % 0.1 %; Red Blood Cells 3.42 10^6/uL (4.5-5.90); Red Cell Distribution Width 17.1 % (11.8-14.3); White Blood Cell 8.6 10^3/uL (4.4-10.8)
[2022-02-17] MEDS: PROPOFOL 100 ML IV SCH ×2 (05:19→19:40)
[2022-02-17 05:24] LABS: Albumin 2.3 g/dL (3.4-5.0); Calcium 9.1 mg/dL (8.5-10.1); Magnesium 2.2 mg/dL (1.6-2.6); Potassium 4.4 mmol/L (3.5-5.1)
[2022-02-17 05:26] LABS: BUN/Creatinine Ratio 21.9
[2022-02-17 05:29] LABS: Bilirubin, Total 0.8 mg/dL (0.2-1.0); Phosphorus 4.5 mg/dL (2.5-4.90); Total Protein 7.8 g/dL (6.4-8.2)
[2022-02-17] MEDS: IPRATROPIUM BROM 0.5 MG/2.5ML INH SOL NEB SCH ×3 (05:56→18:17)
[2022-02-17] MEDS: METOCLOPRAMIDE HCL 5MG/ml INJ 2ml VIAL IV SCH ×3 (06:03→22:20)
[2022-02-17] MEDS: INSULIN LANTUS (GLARGINE) 1 /0.01ml (100units/ml) SC SCH ×2 (06:48→22:30)
[2022-02-17] MEDS: ALBUMIN 25% 100 ML IV PRN ×2 (06:50→08:40)
[2022-02-17] MEDS ORDERED: SODIUM CHL 0.9% 1000 ML BAG XX ONE (07:00)
[2022-02-17] MEDS: PANTOPRAZOLE 40 MG/10 ML VIAL INJ IV SCH (10:10)
[2022-02-17] MEDS: ENOXAPARIN SOD 150 MG/1 ML SYRINGE SC SCH (10:10)
[2022-02-17] MEDS: FLUCONAZOLE 200MG/100ML 100 ML IV SCH (10:10)
[2022-02-17] MEDS: LINEZOLID 600MG/300ML 300 ML IV SCH ×2 (10:11→22:20)
[2022-02-17] MEDS: SODIUM CHLOR 0.9% PF (SALINE LOCK) 10ML VIAL/SYR IV SCH ×2 (10:11→22:20)
[2022-02-17] MEDS: fentaNYL Drip 2500mCg/250mlNS 250 ML IV SCH (13:49)
[2022-02-17] MEDS ORDERED: DIGOXIN (250MCG/ML) 2 ML AMPULE IV ONE (14:30)
[2022-02-17] MEDS: NOREPINEPHRINE 8 MG/250ML KIT 250 ML IV SCH (14:30)
[2022-02-17] MEDS ORDERED: MICAFUNGIN SODIUM 100 MG in SODIUM CHL 0.9% 100 ML IV ONE (14:30)
[2022-02-17] MEDS: DOPamine 1600MCG/ML D5W 250 ML IV SCH (19:27)
[2022-02-17] MEDS ORDERED: TPN PER PHARMACY IV NR ×14 (20:00)
[2022-02-17] MEDS ORDERED: EPOETIN ALFA-EPBX 10,000 UNIT/1ML VIAL SC ONE (21:00)
[2022-02-18] VITALS (97 sets, daily range): BP systolic 73–149; BP diastolic 33–70
[2022-02-18] MEDS: IPRATROPIUM BROM 0.5 MG/2.5ML INH SOL NEB SCH ×4 (00:45→18:21)
[2022-02-18] MEDS: MIDAZOLAM DRIP 50 mg/50mL 50 ML IV SCH ×5 (02:13→23:13)
[2022-02-18] MEDS: PROPOFOL 100 ML IV SCH ×5 (03:07→21:59)
[2022-02-18 04:40] LABS: Hemoglobin 8.7 g/dL (13.5-17.5); Mean Corpuscular Hemoglobin 26.2 pg (28.0-32.0)
[2022-02-18 04:41] LABS: Albumin 2.6 g/dL (3.4-5.0); Hematocrit 26.9 % (41.0-53.0); Magnesium 2.5 mg/dL (1.6-2.6); Mean Corpuscular Hgb Conc. 32.5 g/dL (32.0-36.0); Mean Corpuscular Volume 80.5 fL (80.0-100.0); Potassium 4.4 mmol/L (3.5-5.1); Red Blood Cells 3.34 10^6/uL (4.5-5.90); Red Cell Distribution Width 17.2 % (11.8-14.3); White Blood Cell 7.2 10^3/uL (4.4-10.8)
[2022-02-18 04:44] LABS: BUN/Creatinine Ratio 22.7; Basophils % (manual) 0 (0.0-2.0); Bilirubin, Total 0.9 mg/dL (0.2-1.0); Blast Cells 0; Metamyelocytes % 0; Myelocytes % 0; Phosphorus 4.5 mg/dL (2.5-4.90); Promyelocytes % 0; Reactive Lymphocytes 0; Total Protein 8.6 g/dL (6.4-8.2)
[2022-02-18] MEDS: InsuLIN REG 1unit/0.01ml Soln (100units/ml) SC SCH ×4 (05:30→18:00)
[2022-02-18] MEDS: ACCU-CHEK COMFORT CURVE STRIP VI SCH ×4 (05:30→18:07)
[2022-02-18] MEDS: METOCLOPRAMIDE HCL 5MG/ml INJ 2ml VIAL IV SCH ×3 (05:32→21:32)
[2022-02-18] MEDS: fentaNYL Drip 2500mCg/250mlNS 250 ML IV SCH ×2 (05:37→13:32)
[2022-02-18] MEDS: INSULIN LANTUS (GLARGINE) 1 /0.01ml (100units/ml) SC SCH ×2 (07:06→21:37)
[2022-02-18 08:20] LABS: Band Neutrophils % (manual) 2; Eosinophils % (manual) 6 (0-7); Lymphocytes % (manual) 11 (10.0-50.0); Monocytes % (manual) 8 (0-12)
[2022-02-18] MEDS: SODIUM CHLOR 0.9% PF (SALINE LOCK) 10ML VIAL/SYR IV SCH ×2 (10:18→21:34)
[2022-02-18] MEDS: MICAFUNGIN SODIUM 100 MG in SODIUM CHL 0.9% 100 ML IV SCH (10:18)
[2022-02-18] MEDS: ENOXAPARIN SOD 150 MG/1 ML SYRINGE SC SCH (10:18)
[2022-02-18] MEDS: PANTOPRAZOLE 40 MG/10 ML VIAL INJ IV SCH (10:18)
[2022-02-18] MEDS: LINEZOLID 600MG/300ML 300 ML IV SCH ×2 (11:30→21:34)
[2022-02-18] MEDS ORDERED: SODIUM BICARBONATE 8.4 % INJ 50ML VIAL IV ONE (13:00)
[2022-02-18] MEDS ORDERED: SODIUM BICARBONATE 8.4% INJ 50ML SYRINGE ONE (13:02)
[2022-02-18] MEDS ORDERED: BUMETANIDE 2.5mg/10ml (0.25 mg/ml) INJ IV ONE (14:45)
[2022-02-18] MEDS: DOPamine 1600MCG/ML D5W 250 ML IV SCH (16:44)
[2022-02-18] MEDS: NOREPINEPHRINE 8 MG/250ML KIT 250 ML IV SCH (18:52)
[2022-02-18] MEDS: TPN PER PHARMACY IV NR ×7 (20:03)
[2022-02-19] VITALS (104 sets, daily range): BP systolic 78–173; BP diastolic 40–72
[2022-02-19] MEDS: InsuLIN REG 1unit/0.01ml Soln (100units/ml) SC SCH ×5 (00:10→23:53)
[2022-02-19] MEDS: ACCU-CHEK COMFORT CURVE STRIP VI SCH ×5 (00:10→23:53)
[2022-02-19] MEDS: IPRATROPIUM BROM 0.5 MG/2.5ML INH SOL NEB SCH ×4 (00:15→18:23)
[2022-02-19] MEDS: fentaNYL Drip 2500mCg/250mlNS 250 ML IV SCH ×3 (00:58→23:05)
[2022-02-19 04:01] LABS: Albumin 2.1 g/dL (3.4-5.0); Calcium 8.9 mg/dL (8.5-10.1); Magnesium 2.4 mg/dL (1.6-2.6); Potassium 4.8 mmol/L (3.5-5.1)
[2022-02-19 04:04] LABS: BUN/Creatinine Ratio 25.9; Bilirubin, Total 1.2 mg/dL (0.2-1.0); Phosphorus 5.1 mg/dL (2.5-4.90); Total Protein 7.4 g/dL (6.4-8.2)
[2022-02-19] MEDS: MIDAZOLAM DRIP 50 mg/50mL 50 ML IV SCH ×6 (04:08→23:05)
[2022-02-19] MEDS: PROPOFOL 100 ML IV SCH ×6 (04:09→23:04)
[2022-02-19] MEDS ORDERED: ALBUTEROL SULF 2.5 MG/0.5ML(0.5%) NEB SOLN ONE (04:34)
[2022-02-19] MEDS ORDERED: ALBUTEROL SULF 2.5 MG/0.5ML(0.5%) NEB SOLN NEB ONE (04:45)
[2022-02-19] MEDS: ALBUTEROL SULF 2.5 MG/0.5ML(0.5%) NEB SOLN NEB SCH ×3 (05:51→18:23)
[2022-02-19] MEDS: METOCLOPRAMIDE HCL 5MG/ml INJ 2ml VIAL IV SCH (06:25)
[2022-02-19] MEDS: INSULIN LANTUS (GLARGINE) 1 /0.01ml (100units/ml) SC SCH ×2 (06:38→22:21)
[2022-02-19] MEDS ORDERED: SODIUM CHL 0.9% 1000 ML BAG XX ONE (07:00)
[2022-02-19] MEDS ORDERED: SODIUM BICARBONATE 50ML VIAL 150 ML in D5W 5% 1,000 ML IV SCH ×3 (09:15→13:15)
[2022-02-19] MEDS: ALBUMIN 25% 100 ML IV PRN (10:00)
[2022-02-19] MEDS ORDERED: MEROPENEM 1GM IVPB 100 ML IV SCH (10:00)
[2022-02-19 12:35] LABS: Basophils # (auto) 0.1 10 ^3/uL (0-0.2); Eosinophils # (auto) 0.1 10 ^3/uL (0-0.8); Hemoglobin 9.3 g/dL (13.5-17.5); Monocytes # (auto) 0.5 10 ^3/uL (0-1.3); White Blood Cell 8.8 10^3/uL (4.4-10.8)
[2022-02-19 12:36] LABS: Basophils % (auto) 0.7 % (0.0-2.0); Eosinophils % (auto) 1.1 % (0.0-7.0); Lymphocytes # (auto) 0.5 10 ^3/uL (0.4-5.4); Mean Corpuscular Hemoglobin 26.2 pg (28.0-32.0); Mean Corpuscular Hgb Conc. 32.1 g/dL (32.0-36.0); Mean Corpuscular Volume 81.4 fL (80.0-100.0); Monocytes % (auto) 6.2 % (0.0-12.0); Neutrophils # (auto) 7.6 10 ^3/uL (1.6-8.6); Nucleated Red Blood Cells % 0.3 %; Red Blood Cells 3.56 10^6/uL (4.5-5.90); Red Cell Distribution Width 17.8 % (11.8-14.3)
[2022-02-19] MEDS ORDERED: MEROPENEM 1GM IVPB 100 ML IV ONE (13:00)
[2022-02-19] MEDS: SODIUM CHLOR 0.9% PF (SALINE LOCK) 10ML VIAL/SYR IV SCH ×2 (13:08→22:16)
[2022-02-19] MEDS: PANTOPRAZOLE 40 MG/10 ML VIAL INJ IV SCH (13:11)
[2022-02-19] MEDS: ENOXAPARIN SOD 150 MG/1 ML SYRINGE SC SCH (13:11)
[2022-02-19] MEDS: LINEZOLID 600MG/300ML 300 ML IV SCH ×2 (15:14→22:17)
[2022-02-19] MEDS: NOREPINEPHRINE 8 MG/250ML KIT 250 ML IV SCH (15:21)
[2022-02-19] MEDS: MICAFUNGIN SODIUM 100 MG in SODIUM CHL 0.9% 100 ML IV SCH (17:44)
[2022-02-19] MEDS: TPN PER PHARMACY IV NR ×7 (19:41)
[2022-02-19] MEDS ORDERED: TPN PER PHARMACY IV NR ×6 (20:00)
[2022-02-19] MEDS ORDERED: EPOETIN ALFA-EPBX 10,000 UNIT/1ML VIAL SC ONE (21:00)
[2022-02-20] VITALS (105 sets, daily range): BP systolic 80–138; BP diastolic 35–65
[2022-02-20] MEDS: ALBUTEROL SULF 2.5 MG/0.5ML(0.5%) NEB SOLN NEB SCH ×4 (00:26→18:30)
[2022-02-20] MEDS: IPRATROPIUM BROM 0.5 MG/2.5ML INH SOL NEB SCH ×4 (00:26→18:30)
[2022-02-20] MEDS: MEROPENEM 1GM IVPB 100 ML IV SCH ×2 (01:27→13:22)
[2022-02-20] MEDS: PROPOFOL 100 ML IV SCH ×4 (02:52→23:00)
[2022-02-20] MEDS: MIDAZOLAM DRIP 50 mg/50mL 50 ML IV SCH ×4 (02:52→16:46)
[2022-02-20 04:14] LABS: Basophils # (auto) 0.1 10 ^3/uL (0-0.2); Eosinophils # (auto) 0.2 10 ^3/uL (0-0.8); Eosinophils % (auto) 2.9 % (0.0-7.0); Hemoglobin 7.9 g/dL (13.5-17.5); Lymphocytes # (auto) 0.5 10 ^3/uL (0.4-5.4); Monocytes # (auto) 0.7 10 ^3/uL (0-1.3)
[2022-02-20 04:17] LABS: Basophils % (auto) 1.1 % (0.0-2.0); Hematocrit 24.8 % (41.0-53.0); Lymphocytes % (auto) 9.2 % (10.0-50.0); Mean Corpuscular Hemoglobin 25.4 pg (28.0-32.0); Mean Corpuscular Hgb Conc. 31.8 g/dL (32.0-36.0); Mean Corpuscular Volume 79.9 fL (80.0-100.0); Neutrophils # (auto) 4.4 10 ^3/uL (1.6-8.6); Neutrophils % (auto) 74.8 % (37.0-80.0); Nucleated Red Blood Cells % 0.4 %; Red Cell Distribution Width 17.4 % (11.8-14.3); White Blood Cell 5.9 10^3/uL (4.4-10.8)
[2022-02-20 04:30] LABS: Albumin 2.3 g/dL (3.4-5.0); Calcium 8.7 mg/dL (8.5-10.1); Magnesium 2.2 mg/dL (1.6-2.6); Potassium 3.6 mmol/L (3.5-5.1)
[2022-02-20 04:34] LABS: Bilirubin, Total 1.4 mg/dL (0.2-1.0); Total Protein 7.7 g/dL (6.4-8.2)
[2022-02-20] MEDS: InsuLIN REG 1unit/0.01ml Soln (100units/ml) SC SCH ×3 (05:56→17:59)
[2022-02-20] MEDS: ACCU-CHEK COMFORT CURVE STRIP VI SCH ×3 (05:56→17:57)
[2022-02-20] MEDS: INSULIN LANTUS (GLARGINE) 1 /0.01ml (100units/ml) SC SCH ×2 (06:39→22:22)
[2022-02-20] MEDS: LINEZOLID 600MG/300ML 300 ML IV SCH ×2 (10:54→22:06)
[2022-02-20] MEDS: MICAFUNGIN SODIUM 100 MG in SODIUM CHL 0.9% 100 ML IV SCH (10:54)
[2022-02-20] MEDS: PANTOPRAZOLE 40 MG/10 ML VIAL INJ IV SCH (10:54)
[2022-02-20] MEDS: SODIUM CHLOR 0.9% PF (SALINE LOCK) 10ML VIAL/SYR IV SCH ×2 (10:54→21:57)
[2022-02-20] MEDS: ENOXAPARIN SOD 150 MG/1 ML SYRINGE SC SCH (10:54)
[2022-02-20] MEDS: fentaNYL Drip 2500mCg/250mlNS 250 ML IV SCH ×2 (11:04→23:00)
[2022-02-20] MEDS: NOREPINEPHRINE 8 MG/250ML KIT 250 ML IV SCH (11:44)
[2022-02-20] MEDS ORDERED: TPN PER PHARMACY IV NR ×5 (20:00)
[2022-02-20] MEDS: METOCLOPRAMIDE HCL 5MG/ml INJ 2ml VIAL IV SCH (22:06)
[2022-02-21] VITALS (105 sets, daily range): BP systolic 54–144; BP diastolic 29–85
[2022-02-21] MEDS: ACCU-CHEK COMFORT CURVE STRIP VI SCH ×4 (00:01→18:28)
[2022-02-21] MEDS: ALBUTEROL SULF 2.5 MG/0.5ML(0.5%) NEB SOLN NEB SCH ×4 (00:11→17:56)
[2022-02-21] MEDS: IPRATROPIUM BROM 0.5 MG/2.5ML INH SOL NEB SCH ×4 (00:11→17:56)
[2022-02-21] MEDS: MIDAZOLAM DRIP 50 mg/50mL 50 ML IV SCH ×5 (01:00→22:46)
[2022-02-21] MEDS: MEROPENEM 1GM IVPB 100 ML IV SCH ×2 (01:19→18:35)
[2022-02-21] MEDS: ACETAMINOPHEN 325 MG TAB PO PRN ×2 (05:38→18:34)
[2022-02-21] MEDS: METOCLOPRAMIDE HCL 5MG/ml INJ 2ml VIAL IV SCH ×3 (05:38→22:27)
[2022-02-21] MEDS: InsuLIN REG 1unit/0.01ml Soln (100units/ml) SC SCH ×4 (05:45→18:34)
[2022-02-21 05:49] LABS: Potassium 4.6 mmol/L (3.5-5.1)
[2022-02-21 05:56] LABS: Albumin 2.4 g/dL (3.4-5.0); BUN/Creatinine Ratio 25.7; Magnesium 2.3 mg/dL (1.6-2.6)
[2022-02-21 05:58] LABS: Phosphorus 5.8 mg/dL (2.5-4.90); Total Protein 8.1 g/dL (6.4-8.2)
[2022-02-21] MEDS: NOREPINEPHRINE 8 MG/250ML KIT 250 ML IV SCH ×2 (06:50→18:36)
[2022-02-21] MEDS ORDERED: SODIUM CHL 0.9% 1000 ML BAG XX ONE (07:00)
[2022-02-21] MEDS: INSULIN LANTUS (GLARGINE) 1 /0.01ml (100units/ml) SC SCH ×2 (07:29→22:44)
[2022-02-21] MEDS: SODIUM CHLOR 0.9% PF (SALINE LOCK) 10ML VIAL/SYR IV SCH ×2 (10:00→22:28)
[2022-02-21] MEDS ORDERED: PHENYLEPHRINE IV 250 ML IV ONE (10:33)
[2022-02-21] MEDS: PROPOFOL 100 ML IV SCH (11:21)
[2022-02-21] MEDS: fentaNYL Drip 2500mCg/250mlNS 250 ML IV SCH (11:29)
[2022-02-21] MEDS: MICAFUNGIN SODIUM 100 MG in SODIUM CHL 0.9% 100 ML IV SCH (15:12)
[2022-02-21] MEDS: PANTOPRAZOLE 40 MG/10 ML VIAL INJ IV SCH (15:12)
[2022-02-21] MEDS: ENOXAPARIN SOD 150 MG/1 ML SYRINGE SC SCH (15:12)
[2022-02-21] MEDS: LINEZOLID 600MG/300ML 300 ML IV SCH ×2 (17:02→22:27)
[2022-02-21 18:12] LABS: Anion Gap 13 (5-15); Blood Urea Nitrogen 62 mg/dL (7-18); Carbon Dioxide 28 mmol/L (21-32); Chloride 98 mmol/L (98-107); Glucose 160 mg/dL (74-106); Potassium 3.3 mmol/L (3.5-5.1); Sodium 139 mmol/L (136-145)
[2022-02-21 18:13] LABS: BUN/Creatinine Ratio 22.4; Calcium 9.1 mg/dL (8.5-10.1); GFR African American 31 mL/min; GFR Non-African American 25 mL/min
[2022-02-21] MEDS: TPN PER PHARMACY IV NR ×7 (20:13)
[2022-02-21] MEDS ORDERED: EPOETIN ALFA-EPBX 10,000 UNIT/1ML VIAL SC ONE (21:00)
[2022-02-22] VITALS (104 sets, daily range): BP systolic 73–158; BP diastolic 37–70
[2022-02-22] MEDS: ALBUTEROL SULF 2.5 MG/0.5ML(0.5%) NEB SOLN NEB SCH ×4 (00:06→18:32)
[2022-02-22] MEDS: IPRATROPIUM BROM 0.5 MG/2.5ML INH SOL NEB SCH ×4 (00:07→18:32)
[2022-02-22] MEDS: InsuLIN REG 1unit/0.01ml Soln (100units/ml) SC SCH ×4 (00:59→18:00)
[2022-02-22] MEDS: ACCU-CHEK COMFORT CURVE STRIP VI SCH ×4 (01:00→18:14)
[2022-02-22] MEDS: MEROPENEM 1GM IVPB 100 ML IV SCH (01:02)
[2022-02-22] MEDS: fentaNYL Drip 2500mCg/250mlNS 250 ML IV SCH ×2 (02:05→13:54)
[2022-02-22] MEDS: MIDAZOLAM DRIP 50 mg/50mL 50 ML IV SCH ×5 (02:43→23:29)
[2022-02-22] MEDS: METOCLOPRAMIDE HCL 5MG/ml INJ 2ml VIAL IV SCH ×3 (06:19→21:41)
[2022-02-22] MEDS: INSULIN LANTUS (GLARGINE) 1 /0.01ml (100units/ml) SC SCH ×2 (06:44→22:00)
[2022-02-22 07:51] LABS: Alanine Aminotransferase 52 U/L (16-61); Albumin 2.4 g/dL (3.4-5.0); Anion Gap 12 (5-15); Aspartate Aminotransferase 70 U/L (15-37); BUN/Creatinine Ratio 23.2; Blood Urea Nitrogen 77 mg/dL (7-18); Calcium 8.7 mg/dL (8.5-10.1); Carbon Dioxide 27 mmol/L (21-32); Chloride 98 mmol/L (98-107); GFR African American 25 mL/min; GFR Non-African American 21 mL/min; Glucose 188 mg/dL (74-106); Phosphorus 2.5 mg/dL (2.5-4.90); Potassium 3.7 mmol/L (3.5-5.1); Sodium 137 mmol/L (136-145)
[2022-02-22 07:54] LABS: Alkaline Phosphatase 193 U/L (45-117); Total Protein 8.3 g/dL (6.4-8.2)
[2022-02-22 09:01] LABS: INR 1.13 (0.9-1.15); Partial Thromboplastin Time 29.3 sec (24.6-33.4)
[2022-02-22] MEDS: MICAFUNGIN SODIUM 100 MG in SODIUM CHL 0.9% 100 ML IV SCH (09:14)
[2022-02-22] MEDS: PROPOFOL 100 ML IV SCH ×3 (09:20→22:02)
[2022-02-22] MEDS: SODIUM CHLOR 0.9% PF (SALINE LOCK) 10ML VIAL/SYR IV SCH ×2 (09:23→23:28)
[2022-02-22] MEDS: PANTOPRAZOLE 40 MG/10 ML VIAL INJ IV SCH (09:23)
[2022-02-22] MEDS: LINEZOLID 600MG/300ML 300 ML IV SCH (09:23)
[2022-02-22] MEDS: ENOXAPARIN SOD 150 MG/1 ML SYRINGE SC SCH (09:23)
[2022-02-22] MEDS ORDERED: CIPROFLOXACIN 0.3%OPTH(EYE) SOL 5ML EACHEYE ONE (11:30)
[2022-02-22] MEDS ORDERED: ARTIFICIAL TEAR OPTH(EYE) OINT 3.5GM EACHEYE ONE (11:30)
[2022-02-22] MEDS: NOREPINEPHRINE 8 MG/250ML KIT 250 ML IV SCH (13:55)
[2022-02-22] MEDS: CeftoloZANE-TAZOB 1g/0.5g in D5W 5% 100 ML IV SCH ×2 (15:05→21:43)
[2022-02-22] MEDS: CIPROFLOXACIN 0.3%OPTH(EYE) SOL 5ML EACHEYE SCH ×3 (15:06→21:44)
[2022-02-22 15:50] LABS: Hematocrit 28.4 % (41.0-53.0); Hemoglobin 8.8 g/dL (13.5-17.5); Mean Corpuscular Hemoglobin 25.3 pg (28.0-32.0); Mean Corpuscular Hgb Conc. 30.9 g/dL (32.0-36.0); Mean Corpuscular Volume 81.7 fL (80.0-100.0); Red Blood Cells 3.47 10^6/uL (4.5-5.90); White Blood Cell 5.8 10^3/uL (4.4-10.8)
[2022-02-22 15:56] LABS: Basophils % (manual) 0 (0.0-2.0); Blast Cells 0; Promyelocytes % 0; Reactive Lymphocytes 0
[2022-02-22 18:02] LABS: Band Neutrophils % (manual) 6; Eosinophils % (manual) 1 (0-7); Lymphocytes % (manual) 7 (10.0-50.0); Metamyelocytes % 1; Monocytes % (manual) 10 (0-12)
[2022-02-22 18:03] LABS: Myelocytes % 1
[2022-02-22] MEDS: TPN PER PHARMACY IV NR ×17 (19:49→20:57)
[2022-02-22] MEDS: ARTIFICIAL TEAR OPTH(EYE) OINT 3.5GM EACHEYE SCH (21:43)
[2022-02-23] VITALS (98 sets, daily range): BP systolic 75–153; BP diastolic 42–76
[2022-02-23] MEDS: ALBUTEROL SULF 2.5 MG/0.5ML(0.5%) NEB SOLN NEB SCH ×4 (00:12→18:29)
[2022-02-23] MEDS: IPRATROPIUM BROM 0.5 MG/2.5ML INH SOL NEB SCH ×4 (00:12→18:29)
[2022-02-23] MEDS: ACCU-CHEK COMFORT CURVE STRIP VI SCH ×4 (00:25→17:29)
[2022-02-23] MEDS: fentaNYL Drip 2500mCg/250mlNS 250 ML IV SCH ×3 (02:21→22:24)
[2022-02-23] MEDS: CIPROFLOXACIN 0.3%OPTH(EYE) SOL 5ML EACHEYE SCH ×6 (02:33→22:04)
[2022-02-23] MEDS: MIDAZOLAM DRIP 50 mg/50mL 50 ML IV SCH ×6 (03:37→21:13)
[2022-02-23 04:10] LABS: Red Blood Cells 3.54 10^6/uL (4.5-5.90)
[2022-02-23 04:14] LABS: Hematocrit 28.6 % (41.0-53.0); Hemoglobin 9.2 g/dL (13.5-17.5); Mean Corpuscular Hemoglobin 25.9 pg (28.0-32.0); Mean Corpuscular Hgb Conc. 32.1 g/dL (32.0-36.0); Mean Corpuscular Volume 80.8 fL (80.0-100.0); Red Cell Distribution Width 17.4 % (11.8-14.3); White Blood Cell 7.2 10^3/uL (4.4-10.8)
[2022-02-23 04:26] LABS: Basophils % (manual) 0 (0.0-2.0); Blast Cells 0; Eosinophils % (manual) 0 (0-7); Promyelocytes % 0; Reactive Lymphocytes 0
[2022-02-23 04:28] LABS: Potassium 3.9 mmol/L (3.5-5.1)
[2022-02-23 04:36] LABS: Albumin 2.3 g/dL (3.4-5.0); BUN/Creatinine Ratio 26.7; Calcium 9.1 mg/dL (8.5-10.1); Magnesium 1.9 mg/dL (1.6-2.6)
[2022-02-23 04:39] LABS: Phosphorus 3.7 mg/dL (2.5-4.90); Total Protein 8.3 g/dL (6.4-8.2)
[2022-02-23] MEDS: METOCLOPRAMIDE HCL 5MG/ml INJ 2ml VIAL IV SCH ×3 (05:38→22:02)
[2022-02-23] MEDS: PROPOFOL 100 ML IV SCH ×4 (05:39→22:58)
[2022-02-23] MEDS: CeftoloZANE-TAZOB 1g/0.5g in D5W 5% 100 ML IV SCH ×3 (05:49→22:20)
[2022-02-23] MEDS: InsuLIN REG 1unit/0.01ml Soln (100units/ml) SC SCH ×4 (06:45→17:29)
[2022-02-23] MEDS: NOREPINEPHRINE 8 MG/250ML KIT 250 ML IV SCH ×2 (06:49→12:39)
[2022-02-23] MEDS: INSULIN LANTUS (GLARGINE) 1 /0.01ml (100units/ml) SC SCH ×2 (06:49→22:09)
[2022-02-23] MEDS ORDERED: SODIUM CHL 0.9% 1000 ML BAG XX ONE (07:00)
[2022-02-23 08:52] LABS: Band Neutrophils % (manual) 7; Lymphocytes % (manual) 6 (10.0-50.0); Metamyelocytes % 2; Monocytes % (manual) 10 (0-12); Myelocytes % 2
[2022-02-23] MEDS: ENOXAPARIN SOD 150 MG/1 ML SYRINGE SC SCH (09:39)
[2022-02-23] MEDS: PANTOPRAZOLE 40 MG/10 ML VIAL INJ IV SCH (09:39)
[2022-02-23] MEDS: MICAFUNGIN SODIUM 100 MG in SODIUM CHL 0.9% 100 ML IV SCH (09:40)
[2022-02-23] MEDS: SODIUM CHLOR 0.9% PF (SALINE LOCK) 10ML VIAL/SYR IV SCH ×2 (09:40→22:05)
[2022-02-23] MEDS: ALBUMIN 25% 100 ML IV PRN ×2 (14:13→15:33)
[2022-02-23] MEDS: TPN PER PHARMACY IV NR ×10 (19:34)
[2022-02-23] MEDS ORDERED: TPN PER PHARMACY IV NR ×8 (20:00)
[2022-02-23] MEDS: ACETAMINOPHEN 325 MG TAB PO PRN (20:02)
[2022-02-23] MEDS ORDERED: EPOETIN ALFA-EPBX 10,000 UNIT/1ML VIAL SC ONE (21:00)
[2022-02-23] MEDS: ARTIFICIAL TEAR OPTH(EYE) OINT 3.5GM EACHEYE SCH (22:04)
[2022-02-24] VITALS (100 sets, daily range): BP systolic 33–149; BP diastolic -30–67
[2022-02-24] MEDS: InsuLIN REG 1unit/0.01ml Soln (100units/ml) SC SCH ×5 (00:09→23:45)
[2022-02-24] MEDS: ACCU-CHEK COMFORT CURVE STRIP VI SCH ×5 (00:12→23:47)
[2022-02-24] MEDS: NOREPINEPHRINE 8 MG/250ML KIT 250 ML IV SCH ×3 (00:12→17:46)
[2022-02-24] MEDS: ALBUTEROL SULF 2.5 MG/0.5ML(0.5%) NEB SOLN NEB SCH ×4 (00:30→19:01)
[2022-02-24] MEDS: IPRATROPIUM BROM 0.5 MG/2.5ML INH SOL NEB SCH ×4 (00:30→19:01)
[2022-02-24] MEDS: MIDAZOLAM DRIP 50 mg/50mL 50 ML IV SCH ×4 (01:14→21:13)
[2022-02-24] MEDS: CIPROFLOXACIN 0.3%OPTH(EYE) SOL 5ML EACHEYE SCH ×6 (01:33→21:35)
[2022-02-24 03:58] LABS: Eosinophils # (auto) 0.2 10 ^3/uL (0-0.8); Mean Corpuscular Hemoglobin 25.8 pg (28.0-32.0); Monocytes # (auto) 0.9 10 ^3/uL (0-1.3); White Blood Cell 7.2 10^3/uL (4.4-10.8)
[2022-02-24 04:01] LABS: Basophils # (auto) 0.1 10 ^3/uL (0-0.2); Basophils % (auto) 0.8 % (0.0-2.0); Eosinophils % (auto) 2.5 % (0.0-7.0); Hematocrit 29.2 % (41.0-53.0); Lymphocytes # (auto) 0.8 10 ^3/uL (0.4-5.4); Lymphocytes % (auto) 11.5 % (10.0-50.0); Mean Corpuscular Hgb Conc. 30.9 g/dL (32.0-36.0); Mean Corpuscular Volume 83.4 fL (80.0-100.0); Monocytes % (auto) 12.7 % (0.0-12.0); Neutrophils # (auto) 5.2 10 ^3/uL (1.6-8.6); Neutrophils % (auto) 72.5 % (37.0-80.0); Nucleated Red Blood Cells % 0.5 %; Red Blood Cells 3.51 10^6/uL (4.5-5.90); Red Cell Distribution Width 18.8 % (11.8-14.3)
[2022-02-24 04:26] LABS: Albumin 2.3 g/dL (3.4-5.0); Calcium 8.6 mg/dL (8.5-10.1); Magnesium 2.2 mg/dL (1.6-2.6); Potassium 3.6 mmol/L (3.5-5.1)
[2022-02-24 04:31] LABS: BUN/Creatinine Ratio 27.4; Bilirubin, Total 1.1 mg/dL (0.2-1.0); Phosphorus 3.1 mg/dL (2.5-4.90); Total Protein 8.4 g/dL (6.4-8.2)
[2022-02-24] MEDS: PROPOFOL 100 ML IV SCH ×5 (05:10→21:09)
[2022-02-24] MEDS: METOCLOPRAMIDE HCL 5MG/ml INJ 2ml VIAL IV SCH ×3 (05:53→21:35)
[2022-02-24] MEDS: CeftoloZANE-TAZOB 1g/0.5g in D5W 5% 100 ML IV SCH ×3 (05:53→21:36)
[2022-02-24] MEDS: INSULIN LANTUS (GLARGINE) 1 /0.01ml (100units/ml) SC SCH ×2 (06:48→21:35)
[2022-02-24] MEDS ORDERED: fentaNYL Drip 2500mCg/250mlNS 250 ML IV ONE (09:18)
[2022-02-24] MEDS: MICAFUNGIN SODIUM 100 MG in SODIUM CHL 0.9% 100 ML IV SCH (09:29)
[2022-02-24] MEDS: PANTOPRAZOLE 40 MG/10 ML VIAL INJ IV SCH (09:29)
[2022-02-24] MEDS: SODIUM CHLOR 0.9% PF (SALINE LOCK) 10ML VIAL/SYR IV SCH ×2 (09:30→21:36)
[2022-02-24] MEDS: ENOXAPARIN SOD 150 MG/1 ML SYRINGE SC SCH (09:30)
[2022-02-24] MEDS: fentaNYL Drip 2500mCg/250mlNS 250 ML IV SCH ×2 (09:40→21:16)
[2022-02-24] MEDS: PHENYLEPHRINE INJ 80 MG in SODIUM CHL 0.9% 242 ML IV SCH (14:15)
[2022-02-24] MEDS: LINEZOLID 600MG/300ML 300 ML IV SCH (14:34)
[2022-02-24] MEDS ORDERED: TPN PER PHARMACY IV NR ×9 (20:00)
[2022-02-24] MEDS: ARTIFICIAL TEAR OPTH(EYE) OINT 3.5GM EACHEYE SCH (21:35)
[2022-02-25] VITALS (106 sets, daily range): BP systolic 32–170; BP diastolic 19–68
[2022-02-25] MEDS: MIDAZOLAM DRIP 50 mg/50mL 50 ML IV SCH ×6 (00:20→21:45)
[2022-02-25] MEDS: PROPOFOL 100 ML IV SCH ×6 (00:20→21:44)
[2022-02-25] MEDS: NOREPINEPHRINE 8 MG/250ML KIT 250 ML IV SCH ×3 (00:20→12:30)
[2022-02-25] MEDS: ALBUTEROL SULF 2.5 MG/0.5ML(0.5%) NEB SOLN NEB SCH ×4 (01:13→18:15)
[2022-02-25] MEDS: IPRATROPIUM BROM 0.5 MG/2.5ML INH SOL NEB SCH ×4 (01:13→18:16)
[2022-02-25] MEDS: CIPROFLOXACIN 0.3%OPTH(EYE) SOL 5ML EACHEYE SCH ×6 (02:52→21:41)
[2022-02-25] MEDS: LINEZOLID 600MG/300ML 300 ML IV SCH ×2 (02:53→15:00)
[2022-02-25 04:25] LABS: Basophils # (auto) 0.1 10 ^3/uL (0-0.2); Eosinophils # (auto) 0.4 10 ^3/uL (0-0.8); Nucleated Red Blood Cells % 0.5 %
[2022-02-25 04:27] LABS: Basophils % (auto) 0.8 % (0.0-2.0); Eosinophils % (auto) 4.5 % (0.0-7.0); Hematocrit 27.3 % (41.0-53.0); Hemoglobin 8.6 g/dL (13.5-17.5); Lymphocytes # (auto) 1.1 10 ^3/uL (0.4-5.4); Lymphocytes % (auto) 10.9 % (10.0-50.0); Mean Corpuscular Hemoglobin 25.3 pg (28.0-32.0); Mean Corpuscular Hgb Conc. 31.6 g/dL (32.0-36.0); Mean Corpuscular Volume 80.1 fL (80.0-100.0); Neutrophils # (auto) 7.2 10 ^3/uL (1.6-8.6); Neutrophils % (auto) 73.8 % (37.0-80.0); Red Blood Cells 3.41 10^6/uL (4.5-5.90); Red Cell Distribution Width 17.7 % (11.8-14.3); White Blood Cell 9.8 10^3/uL (4.4-10.8)
[2022-02-25 05:03] LABS: Albumin 2.2 g/dL (3.4-5.0); BUN/Creatinine Ratio 31.3; Bilirubin, Total 1.2 mg/dL (0.2-1.0); Calcium 8.7 mg/dL (8.5-10.1); Magnesium 2.4 mg/dL (1.6-2.6); Phosphorus 3.9 mg/dL (2.5-4.90); Potassium 3.9 mmol/L (3.5-5.1); Total Protein 7.7 g/dL (6.4-8.2)
[2022-02-25] MEDS: METOCLOPRAMIDE HCL 5MG/ml INJ 2ml VIAL IV SCH ×3 (06:04→21:42)
[2022-02-25] MEDS: InsuLIN REG 1unit/0.01ml Soln (100units/ml) SC SCH ×3 (06:04→18:00)
[2022-02-25] MEDS: ACCU-CHEK COMFORT CURVE STRIP VI SCH ×3 (06:05→18:10)
[2022-02-25] MEDS: CeftoloZANE-TAZOB 1g/0.5g in D5W 5% 100 ML IV SCH ×3 (06:16→21:42)
[2022-02-25] MEDS: INSULIN LANTUS (GLARGINE) 1 /0.01ml (100units/ml) SC SCH ×2 (06:41→21:43)
[2022-02-25] MEDS ORDERED: SODIUM CHL 0.9% 1000 ML BAG XX ONE (07:00)
[2022-02-25] MEDS ORDERED: SODIUM BICARBONATE 8.4 % INJ 50ML VIAL IV ONE ×3 (09:00→13:00)
[2022-02-25] MEDS: fentaNYL Drip 2500mCg/250mlNS 250 ML IV SCH ×2 (09:15→19:35)
[2022-02-25] MEDS: PANTOPRAZOLE 40 MG/10 ML VIAL INJ IV SCH (10:19)
[2022-02-25] MEDS: MICAFUNGIN SODIUM 100 MG in SODIUM CHL 0.9% 100 ML IV SCH (10:20)
[2022-02-25] MEDS: SODIUM CHLOR 0.9% PF (SALINE LOCK) 10ML VIAL/SYR IV SCH ×2 (10:24→22:43)
[2022-02-25] MEDS: ENOXAPARIN SOD 150 MG/1 ML SYRINGE SC SCH (10:24)
[2022-02-25] MEDS: PHENYLEPHRINE INJ 80 MG in SODIUM CHL 0.9% 242 ML IV SCH ×2 (14:15→16:30)
[2022-02-25] MEDS: NOREPINEPHRINE BITARTRATE 32 MG in SODIUM CHL 0.9% 218 ML IV SCH (16:30)
[2022-02-25] MEDS ORDERED: TPN PER PHARMACY IV NR ×8 (20:00)
[2022-02-25] MEDS: ACETAMINOPHEN 325 MG TAB PO PRN (20:04)
[2022-02-25] MEDS ORDERED: EPOETIN ALFA-EPBX 10,000 UNIT/1ML VIAL SC ONE (21:00)
[2022-02-25] MEDS: ARTIFICIAL TEAR OPTH(EYE) OINT 3.5GM EACHEYE SCH (21:42)
[2022-02-26] VITALS (103 sets, daily range): BP systolic 47–154; BP diastolic 29–67
[2022-02-26] MEDS: ACCU-CHEK COMFORT CURVE STRIP VI SCH ×4 (00:27→18:05)
[2022-02-26] MEDS: PROPOFOL 100 ML IV SCH ×6 (00:54→20:46)
[2022-02-26] MEDS: MIDAZOLAM DRIP 50 mg/50mL 50 ML IV SCH ×6 (00:54→22:16)
[2022-02-26] MEDS: ALBUTEROL SULF 2.5 MG/0.5ML(0.5%) NEB SOLN NEB SCH ×4 (00:58→17:57)
[2022-02-26] MEDS: IPRATROPIUM BROM 0.5 MG/2.5ML INH SOL NEB SCH ×4 (00:59→17:58)
[2022-02-26] MEDS: LINEZOLID 600MG/300ML 300 ML IV SCH ×2 (02:50→16:59)
[2022-02-26] MEDS: CIPROFLOXACIN 0.3%OPTH(EYE) SOL 5ML EACHEYE SCH ×6 (02:50→22:08)
[2022-02-26 04:27] LABS: Hemoglobin 9.2 g/dL (13.5-17.5)
[2022-02-26 04:33] LABS: Hematocrit 28.7 % (41.0-53.0); Mean Corpuscular Hemoglobin 25.4 pg (28.0-32.0); Mean Corpuscular Hgb Conc. 31.9 g/dL (32.0-36.0); Mean Corpuscular Volume 79.6 fL (80.0-100.0); Red Blood Cells 3.61 10^6/uL (4.5-5.90); Red Cell Distribution Width 17.9 % (11.8-14.3)
[2022-02-26 04:37] LABS: Albumin 2.1 g/dL (3.4-5.0); Basophils % (manual) 0 (0.0-2.0); Blast Cells 0; Calcium 8.6 mg/dL (8.5-10.1); Magnesium 2.2 mg/dL (1.6-2.6); Metamyelocytes % 0; Myelocytes % 0; Potassium 3.6 mmol/L (3.5-5.1); Promyelocytes % 0; Reactive Lymphocytes 0
[2022-02-26 04:41] LABS: BUN/Creatinine Ratio 30.6; Bilirubin, Total 1.5 mg/dL (0.2-1.0); Phosphorus 2.8 mg/dL (2.5-4.90); Total Protein 8.1 g/dL (6.4-8.2)
[2022-02-26 05:03] LABS: Band Neutrophils % (manual) 3; Eosinophils % (manual) 11 (0-7); Lymphocytes % (manual) 10 (10.0-50.0); Monocytes % (manual) 5 (0-12)
[2022-02-26] MEDS: METOCLOPRAMIDE HCL 5MG/ml INJ 2ml VIAL IV SCH ×3 (06:07→21:52)
[2022-02-26] MEDS: CeftoloZANE-TAZOB 1g/0.5g in D5W 5% 100 ML IV SCH ×3 (06:09→22:02)
[2022-02-26] MEDS: InsuLIN REG 1unit/0.01ml Soln (100units/ml) SC SCH ×4 (06:12→18:00)
[2022-02-26] MEDS: fentaNYL Drip 2500mCg/250mlNS 250 ML IV SCH ×2 (06:13→18:01)
[2022-02-26] MEDS: INSULIN LANTUS (GLARGINE) 1 /0.01ml (100units/ml) SC SCH ×2 (06:32→22:05)
[2022-02-26] MEDS: PANTOPRAZOLE 40 MG/10 ML VIAL INJ IV SCH (09:43)
[2022-02-26] MEDS: ENOXAPARIN SOD 150 MG/1 ML SYRINGE SC SCH (09:44)
[2022-02-26] MEDS: SODIUM CHLOR 0.9% PF (SALINE LOCK) 10ML VIAL/SYR IV SCH ×2 (09:44→22:08)
[2022-02-26] MEDS: MICAFUNGIN SODIUM 100 MG in SODIUM CHL 0.9% 100 ML IV SCH (09:46)
[2022-02-26] MEDS: PHENYLEPHRINE INJ 80 MG in SODIUM CHL 0.9% 242 ML IV SCH ×2 (10:15→20:38)
[2022-02-26 14:54] LABS: INR 1.12 (0.9-1.15)
[2022-02-26] MEDS: NOREPINEPHRINE BITARTRATE 32 MG in SODIUM CHL 0.9% 218 ML IV SCH (15:00)
[2022-02-26] MEDS ORDERED: LIDOCAINE 1% (LOCAL ANESTH.) PF 5ml SDV ID ONE (17:45)
[2022-02-26] MEDS: ACETAMINOPHEN 325 MG TAB PO PRN (18:07)
[2022-02-26] MEDS ORDERED: TPN PER PHARMACY IV NR ×8 (20:00)
[2022-02-26] MEDS ORDERED: EPOETIN ALFA-EPBX 10,000 UNIT/1ML VIAL SC ONE (21:00)
[2022-02-26] MEDS: ARTIFICIAL TEAR OPTH(EYE) OINT 3.5GM EACHEYE SCH (22:08)
[2022-02-27] VITALS (75 sets, daily range): BP systolic 48–175; BP diastolic 29–71
[2022-02-27] MEDS: ALBUTEROL SULF 2.5 MG/0.5ML(0.5%) NEB SOLN NEB SCH ×3 (00:05→12:11)
[2022-02-27] MEDS: IPRATROPIUM BROM 0.5 MG/2.5ML INH SOL NEB SCH ×3 (00:05→12:11)
[2022-02-27] MEDS: PROPOFOL 100 ML IV SCH ×4 (00:35→13:49)
[2022-02-27] MEDS: NOREPINEPHRINE BITARTRATE 32 MG in SODIUM CHL 0.9% 218 ML IV SCH (00:36)
[2022-02-27] MEDS: CIPROFLOXACIN 0.3%OPTH(EYE) SOL 5ML EACHEYE SCH ×4 (01:33→14:00)
[2022-02-27] MEDS: LINEZOLID 600MG/300ML 300 ML IV SCH ×2 (02:36→15:00)
[2022-02-27] MEDS: MIDAZOLAM DRIP 50 mg/50mL 50 ML IV SCH ×3 (02:36→09:08)
[2022-02-27 04:36] LABS: Hematocrit 26.8 % (41.0-53.0); Hemoglobin 8.8 g/dL (13.5-17.5); Mean Corpuscular Hemoglobin 26.1 pg (28.0-32.0); Mean Corpuscular Volume 79.1 fL (80.0-100.0); Red Blood Cells 3.38 10^6/uL (4.5-5.90); Red Cell Distribution Width 18.5 % (11.8-14.3); White Blood Cell 9.7 10^3/uL (4.4-10.8)
[2022-02-27 04:46] LABS: Basophils % (manual) 0 (0.0-2.0); Blast Cells 0; Promyelocytes % 0; Reactive Lymphocytes 0
[2022-02-27 04:56] LABS: Albumin 2.3 g/dL (3.4-5.0); Calcium 9.1 mg/dL (8.5-10.1); Magnesium 1.9 mg/dL (1.6-2.6); Potassium 3.4 mmol/L (3.5-5.1)
[2022-02-27 05:02] LABS: BUN/Creatinine Ratio 27.5; Bilirubin, Total 1.4 mg/dL (0.2-1.0); Phosphorus 3.2 mg/dL (2.5-4.90); Total Protein 8.5 g/dL (6.4-8.2)
[2022-02-27] MEDS: fentaNYL Drip 2500mCg/250mlNS 250 ML IV SCH (05:34)
[2022-02-27] MEDS: InsuLIN REG 1unit/0.01ml Soln (100units/ml) SC SCH ×3 (05:38→12:00)
[2022-02-27] MEDS: ACCU-CHEK COMFORT CURVE STRIP VI SCH ×3 (05:38→12:00)
[2022-02-27] MEDS: CeftoloZANE-TAZOB 1g/0.5g in D5W 5% 100 ML IV SCH ×2 (05:57→14:00)
[2022-02-27] MEDS: METOCLOPRAMIDE HCL 5MG/ml INJ 2ml VIAL IV SCH ×2 (06:03→14:00)
[2022-02-27] MEDS: INSULIN LANTUS (GLARGINE) 1 /0.01ml (100units/ml) SC SCH (06:45)
[2022-02-27] MEDS ORDERED: SODIUM CHL 0.9% 1000 ML BAG XX ONE (07:00)
[2022-02-27 08:16] LABS: Band Neutrophils % (manual) 19; Eosinophils % (manual) 7 (0-7); Lymphocytes % (manual) 5 (10.0-50.0); Metamyelocytes % 1; Monocytes % (manual) 12 (0-12); Myelocytes % 2
[2022-02-27] MEDS: ENOXAPARIN SOD 150 MG/1 ML SYRINGE SC SCH (10:16)
[2022-02-27] MEDS: PANTOPRAZOLE 40 MG/10 ML VIAL INJ IV SCH (10:16)
[2022-02-27] MEDS: MICAFUNGIN SODIUM 100 MG in SODIUM CHL 0.9% 100 ML IV SCH (10:16)
[2022-02-27] MEDS: SODIUM CHLOR 0.9% PF (SALINE LOCK) 10ML VIAL/SYR IV SCH (10:17)
[2022-02-27] MEDS ORDERED: LORazepam 2MG/ML-1ML VIAL IV PRN (14:45)
[2022-02-27] MEDS ORDERED: MORPHINE SULFATE INJ 2 MG/ml SYRG IV PRN (14:45)
[2022-02-27] MEDS ORDERED: TPN*HIGH CONC* PER PHARMACY IV NR ×18 (20:00)
[2022-02-27] MEDS ORDERED: EPOETIN ALFA-EPBX 10,000 UNIT/1ML VIAL SC ONE (21:00)
== END 2022-02-27 23:59 | DRG 870 ==
LOC: EDBD 05:02 → ER 05:02 → TELE 11:41 → ICU WEST 02-02 08:20
PROVIDERS: ADMIT Registered Nurse; ATTEND Internal Medicine
PROC: 5A09457 Assistance with Respiratory Ventilation, 24-96 Consecutive Hours, Continuous Positive Airway Pressure (ICD-10-PCS; 2022-02-01)
PROC: 5A1955Z Respiratory Ventilation, Greater than 96 Consecutive Hours (ICD-10-PCS; principal; 2022-02-02)
PROC: 0BH17EZ Insertion of Endotracheal Airway into Trachea, Via Natural or Artificial Opening (ICD-10-PCS; 2022-02-02)
PROC: 02HV33Z Insertion of Infusion Device into Superior Vena Cava, Percutaneous Approach (ICD-10-PCS; 2022-02-02)
PROC: B548ZZA Ultrasonography of Superior Vena Cava, Guidance (ICD-10-PCS; 2022-02-02)
PROC: 05HY33Z Insertion of Infusion Device into Upper Vein, Percutaneous Approach (ICD-10-PCS; 2022-02-05)
PROC: B544ZZA Ultrasonography of Left Jugular Veins, Guidance (ICD-10-PCS; 2022-02-05)
PROC: 5A1D70Z Performance of Urinary Filtration, Intermittent, Less than 6 Hours Per Day (ICD-10-PCS; 2022-02-05)
PROC: 03HY32Z Insertion of Monitoring Device into Upper Artery, Percutaneous Approach (ICD-10-PCS; 2022-02-07)
PROC: 5A1D70Z Performance of Urinary Filtration, Intermittent, Less than 6 Hours Per Day (ICD-10-PCS; 2022-02-08)
PROC: 5A1D70Z Performance of Urinary Filtration, Intermittent, Less than 6 Hours Per Day (ICD-10-PCS; 2022-02-09)
PROC: 5A1D70Z Performance of Urinary Filtration, Intermittent, Less than 6 Hours Per Day (ICD-10-PCS; 2022-02-10)
PROC: 5A1D70Z Performance of Urinary Filtration, Intermittent, Less than 6 Hours Per Day (ICD-10-PCS; 2022-02-11)
PROC: 02HV33Z Insertion of Infusion Device into Superior Vena Cava, Percutaneous Approach (ICD-10-PCS; 2022-02-12)
PROC: B548ZZA Ultrasonography of Superior Vena Cava, Guidance (ICD-10-PCS; 2022-02-12)
PROC: 5A1D70Z Performance of Urinary Filtration, Intermittent, Less than 6 Hours Per Day (ICD-10-PCS; 2022-02-12)
PROC: 0D9670Z Drainage of Stomach with Drainage Device, Via Natural or Artificial Opening (ICD-10-PCS; 2022-02-13)
PROC: 5A1D70Z Performance of Urinary Filtration, Intermittent, Less than 6 Hours Per Day (ICD-10-PCS; 2022-02-13)
PROC: 5A1D70Z Performance of Urinary Filtration, Intermittent, Less than 6 Hours Per Day (ICD-10-PCS; 2022-02-14)
PROC: 5A1D70Z Performance of Urinary Filtration, Intermittent, Less than 6 Hours Per Day (ICD-10-PCS; 2022-02-15)
PROC: 5A1D70Z Performance of Urinary Filtration, Intermittent, Less than 6 Hours Per Day (ICD-10-PCS; 2022-02-17)
PROC: 05HF33Z Insertion of Infusion Device into Left Cephalic Vein, Percutaneous Approach (ICD-10-PCS; 2022-02-19)
PROC: B54NZZA Ultrasonography of Left Upper Extremity Veins, Guidance (ICD-10-PCS; 2022-02-19)
PROC: 5A1D70Z Performance of Urinary Filtration, Intermittent, Less than 6 Hours Per Day (ICD-10-PCS; 2022-02-19)
PROC: 5A1D70Z Performance of Urinary Filtration, Intermittent, Less than 6 Hours Per Day (ICD-10-PCS; 2022-02-21)
PROC: 5A1D70Z Performance of Urinary Filtration, Intermittent, Less than 6 Hours Per Day (ICD-10-PCS; 2022-02-23)
PROC: 03HY32Z Insertion of Monitoring Device into Upper Artery, Percutaneous Approach (ICD-10-PCS; 2022-02-24)
PROC: 5A1D70Z Performance of Urinary Filtration, Intermittent, Less than 6 Hours Per Day (ICD-10-PCS; 2022-02-25)
PROC: 5A1D70Z Performance of Urinary Filtration, Intermittent, Less than 6 Hours Per Day (ICD-10-PCS; 2022-02-26)
DX: A41.9 Sepsis, unspecified organism (principal); J18.9 Pneumonia, unspecified organism; J96.01 Acute respiratory failure with hypoxia; J96.02 Acute respiratory failure with hypercapnia; N17.0 Acute kidney failure with tubular necrosis; G93.41 Metabolic encephalopathy; I50.43 Acute on chronic combined systolic (congestive) and diastolic (congestive) heart failure; K85.90 Acute pancreatitis without necrosis or infection, unspecified; N18.6 End stage renal disease; R65.21 Severe sepsis with septic shock; J44.1 Chronic obstructive pulmonary disease with (acute) exacerbation; Z20.822 Contact with and (suspected) exposure to COVID-19; I13.0 Hypertensive heart and chronic kidney disease with heart failure and stage 1 through stage 4 chronic kidney disease, or unspecified chronic kidney disease; J44.0 Chronic obstructive pulmonary disease with (acute) lower respiratory infection; E66.2 Morbid (severe) obesity with alveolar hypoventilation; E87.4 Mixed disorder of acid-base balance; G93.1 Anoxic brain damage, not elsewhere classified; L03.90 Cellulitis, unspecified; I13.2 Hypertensive heart and chronic kidney disease with heart failure and with stage 5 chronic kidney disease, or end stage renal disease; J95.851 Ventilator associated pneumonia; J98.11 Atelectasis; Z68.43 Body mass index [BMI] 50.0-59.9, adult; D17.71 Benign lipomatous neoplasm of kidney; E88.09 Other disorders of plasma-protein metabolism, not elsewhere classified; E11.51 Type 2 diabetes mellitus with diabetic peripheral angiopathy without gangrene; E66.01 Morbid (severe) obesity due to excess calories; N18.30 Chronic kidney disease, stage 3 unspecified; I48.91 Unspecified atrial fibrillation; K80.20 Calculus of gallbladder without cholecystitis without obstruction; H57.02 Anisocoria; Z99.2 Dependence on renal dialysis; G90.2 Horner's syndrome; H02.402 Unspecified ptosis of left eyelid
CPT/HCPCS: 31500; 36415; 36569; 36600; 71045; 74018; 76700; 76705; 80048; 80053; 80061; 80074; 81001; 82533; 82570; 82728; 82805; 82962; 83036; 83540; 83550; 83605; 83615; 83690; 83735; 83880; 84100; 84300; 84443; 84478; 84484; 85007; 85025; 85027; 85379; 85610; 85730; 87040; 87070; 87077; 87086; 87186; 87205; 87340; 87426; 87804; 87807; 90935; 93005; 93306; 93970; 93971; 94002; 94003; 94640; 94660; 95819; 96365; 96367; 96375; 99291; C9113; G0378; J0696; J1450; J1642; J1815; J2185; J2248; J2250; J2704; J3480; J7060; J7131; P9047